=== PATIENT | female | born 1955 | race Caucasian/White ===

== ENCOUNTER 2016-11-17 10:58 | Observation (INO) | payer BC, OTHER ==
[~2016-11-17] VITALS: Ht 160 cm; Wt 74.3 kg
--- NOTE | 2016-11-17 11:38 | EMERGENCY ROOM VISIT NOTE ---
History First contact with patient: 11:26 Chief Complaint: STROKE SYMPTOMS Stated Complaint: REFERRED BY DOCTOR FOR AN MRI History of Present Illness The patient is a 60 year old female who presents to the Emergency Room with complaints of "referred by for an MRI". Patient states she was referred here by Dr. Burns. She was in his office today to get a Holter monitor applied and noted that she had left-sided facial weakness, and arm weakness therefore he sent her here for potential MRI. The patient states that this numbness started yesterday afternoon and she took a picture of her face showing the weakness and droop of the left side of her face. She states that she is also had chest pain for times in late September and early October with last being the other week and being the worst. She denies any currently. She sees Dr. Ames who ordered an EKG and noted it was abnormal as well as an echo which showed a left atrium with moderate enlargement and a left ventricle does not relax. She states that yesterday she felt her heart was going "nutty" and around that time noticed the weakness of the left side of her face and her arm. She states that Dr. Burns and did do tests in his office today and told her to go to the emergency department. She denies any history of stroke or heart problems. She denies any current chest pain or shortness of breath. Review of Systems A complete 10-point Review of Systems was discussed with the patient, with pertinent positives and negatives listed in the History of Present Illness. All remaining Review of Systems questions can be considered negative unless otherwise specified. Past Medical/Surgical History Medical Problems: (1) Multifocal atrial tachycardia (2) PAC (premature atrial contraction) Surgical Problems: (1) H/O: hysterectomy Social History Smoking Status: Never Smoker Marital Status: Housing Status: lives with significant other Occupation Status: employed Current/Historical Medications Scheduled Bupropion (Wellbutrin Sr), 200 MG PO BID Estrogens, Conjugated (Premarin), 0.3 MG PO DAILY Allergies Coded Allergies: No Known Allergies (Unverified , 11/17/16) Physical Exam Vital Signs Date Time Temp Pulse Resp B/P Pulse Ox O2 Delivery O2 Flow Rate FiO2 11/17/16 17:54 101 18 126/66 96 Room Air 11/17/16 16:05 86 20 127/77 97 Room Air 11/17/16 14:20 88 20 133/81 96 Room Air 11/17/16 13:27 94 11/17/16 13:05 83 16 129/87 100 Room Air 11/17/16 11:42 78 11/17/16 11:41 100 Room Air 11/17/16 11:04 36.6 70 18 146/96 100 Physical Exam VITAL SIGNS - Vital signs and nursing notes were reviewed. Patient is afebrile , 146/96, non-tachycardic and is saturating well on room air 100%. GENERAL -60-year-old female appearing her stated age who is in no acute distress. Communicates well with provider and answers questions appropriately. SKIN - Without rashes. HEAD - NC/AT. No unilateral facial droop or asymmetry noted. EYES - PERRL with EOMI bilaterally. Sclera anicteric. Palpebral conjunctiva pink and moist with no injection noted. EARS - No deformities of external structures noted on gross examination bilaterally. NOSE - Midline and without cyanosis. No epistaxis or purulent drainage noted. MOUTH/OROPHARYNX - Without perioral cyanosis. Buccal mucosa pink and moist and without leukoplakia. Tongue midline with equal elevation of palate bilaterally. No tonsillar hypertrophy, erythema, or exudates noted. Code dentition noted. NECK - Neck with FROM. LUNGS - Chest wall symmetric without accessory muscle use, intercostals retractions, or central cyanosis. Normal vesicular breath sounds CTA B/L. No wheezes, rales, or rhonchi appreciated. CARDIAC - RRR with S1/S2. No murmur, rubs, or gallops appreciated. EXTREMITIES - No clubbing or peripheral cyanosis. No pretibial edema present. + 5/5 strength noted in UE/LE bilaterally. No unilateral deficits noted. NEUROLOGIC - Cranial nerves II through XII grossly intact. Sensory intact to light touch throughout. PSYCH - A&Ox3 and cooperates fully with examiner. Pt is very pleasant and interacts well with examiner. Medical Decision & Procedures ER Provider Diagnostic Interpretation: HEAD CT NONCONTRAST CT DOSE: 537.48 mGy.cm HISTORY: Mental status change Stroke TECHNIQUE: Multiaxial CT images of the head were performed without the use of intravenous contrast. Comparison: 06/15/2014 Findings: The paranasal sinuses and mastoid air cells are clear. The calvarium and skull base are intact. The ventricles and sulci are within normal limits. There is no mass, hematoma, midline shift, or acute infarct. Impression: No acute intracranial abnormality. Electronically signed by: Anthony Israel M.D. 11/17/2016 12:17 PM Dictated Date/Time: 11/17/2016 12:15 PM MRI OF THE BRAIN COMBO CLINICAL HISTORY: Unilateral facial weakness. Left arm weakness. COMPARISON STUDY: CT of the brain dated 11/17/16. TECHNIQUE: MRI of the brain was performed utilizing various T1 and T2-weighted sequences in the axial, sagittal, and coronal planes. Contrast-enhanced sequences were acquired following the administration of 7.5 cc of Gadavist. FINDINGS: Brain parenchyma: The brain parenchyma is normal in appearance. There is no hemorrhage or mass effect. There is no restricted diffusion to suggest acute ischemia. No enhancing mass lesion is identified on the postcontrast images. Milligan-white matter differentiation is preserved. No extra-axial fluid collection is seen. The cerebellar tonsils are normal in configuration. Ventricles, sulci, and cisterns: Normal in configuration. Pituitary and sella: Unremarkable. Intracranial vasculature: Normal flow voids are maintained at the skull base. Orbits: The bony orbits are grossly intact. Orbital contents are normal in appearance. Sinuses and mastoids: Clear. Calvarium: Unremarkable. Cervical cord: Partially visualized cervical spinal cord is normal in morphology and signal intensity. IMPRESSION: No acute intracranial abnormality. Electronically signed by: Piyush Danielson M.D. 11/17/2016 3:53 PM Dictated Date/Time: 11/17/2016 3:50 PM Laboratory Results 11/17/16 11:30 Red Blood Count 4.16, Mean Corpuscular Volume 93.8, Mean Corpuscular Hemoglobin 31.7, Mean Corpuscular Hemoglobin Concent 33.8, Mean Platelet Volume 10.0, Neutrophils (%) (Auto) 61.2, Lymphocytes (%) (Auto) 27.6, Monocytes (%) (Auto) 8.9, Eosinophils (%) (Auto) 1.6, Basophils (%) (Auto) 0.7, Neutrophils # (Auto) 3.73, Lymphocytes # (Auto) 1.68, Monocytes # (Auto) 0.54, Eosinophils # (Auto) 0.10, Basophils # (Auto) 0.04 Test 11/17/16 11:30 11/17/16 11:50 White Blood Count 6.09 K/uL (4.8-10.8) Red Blood Count 4.16 M/uL (4.2-5.4) Hemoglobin 13.2 g/dL (12.0-16.0) Hematocrit 39.0 % (37-47) Mean Corpuscular Volume 93.8 fL (80-100) Mean Corpuscular Hemoglobin 31.7 pg (25-34) Mean Corpuscular Hemoglobin Concent 33.8 g/dl (32-36) Platelet Count 345 K/uL (130-400) Mean Platelet Volume 10.0 fL (7.4-10.4) Neutrophils (%) (Auto) 61.2 % Lymphocytes (%) (Auto) 27.6 % Monocytes (%) (Auto) 8.9 % Eosinophils (%) (Auto) 1.6 % Basophils (%) (Auto) 0.7 % Neutrophils # (Auto) 3.73 K/uL (1.4-6.5) Lymphocytes # (Auto) 1.68 K/uL (1.2-3.4) Monocytes # (Auto) 0.54 K/uL (0.11-0.59) Eosinophils # (Auto) 0.10 K/uL (0-0.5) Basophils # (Auto) 0.04 K/uL (0-0.2) RDW Standard Deviation 44.5 fL (36.4-46.3) RDW Coefficient of Variation 13.0 % (11.5-14.5) Immature Granulocyte % (Auto) 0.0 % Immature Granulocyte # (Auto) 0.00 K/uL (0.00-0.02) Prothrombin Time 10.4 SECONDS (9.0-12.0) Prothromb Time International Ratio 1.0 (0.9-1.1) Activated Partial Thromboplast Time 26.4 SECONDS (21.0-31.0) Partial Thromboplastin Ratio 1.0 Bedside Glucose 80 mg/dl (70-90) Medications Administered Medications (Trade) Dose Ordered Sig/Roxann Route Start Time Stop Time Status Last Admin Dose Admin Sodium Chloride (Nss 1000ml) 1,000 ml @ 50 mls/hr Q20H IV 11/17/16 11:38 12/17/16 11:37 11/17/16 11:53 50 MLS/HR Aspirin (Aspirin Chew) 324 mg NOW STAT PO 11/17/16 18:39 11/17/16 18:44 DC 11/17/16 19:24 324 MG Medical Decision Patient was seen and evaluated as above. After obtaining a thorough history and physical examination IV access is obtained and the above workup was obtained. NIH stroke scale 0. The patient did not have any neurologic deficits upon my exam or facial drooping or left-sided weakness. She was evaluated for potential stroke. CT scan of the head was negative. CBC reveals a leukocytosis but slight anemia. Coagulation studies within normal limits. CT and PE reveal slight elevation of BUN, negative troponin. Patient's EKG revealed normal sinus rhythm, rate of 73 bpm and when compared to EKG of 2013 reveals that the PVCs and PACs are no longer present. EKG was then repeated as the patient fell she was expecting palpitations. The repeat EKG revealed PVCs and the incomplete right bundle-branch block was no longer present. Troponin was negative therefore I do not suspect any cardiac abnormality at this time. The case was discussed with my attending and it was decided to obtain an MRI of the brain with and without contrast. Results as above. With normal limits. I then elected discussed the case with the on-call neurologist 6:[address] Ibarra and the case was thoroughly discussed. She recommended that the patient be admitted as the case does sound concerning she recommended obtaining a CT of the head, neck as well as echo. She also recommended obtaining a hemoglobin A1c and to look into potential risk factors. The case was then discussed with the admission team and the patient will be admitted for further evaluation and management. Please refer to further hospital documentation regarding the patient's stay. I do believe the patient will benefit from inpatient management. She was given 324 mg of aspirin after discussing the case with my attending. In the evaluation treatment this patient following differential diagnoses were entertained: TIA, CVA, neurologic event, among others. Impression Primary Impression: Facial droop Additional Impressions: Left arm weakness PVC (premature ventricular contraction) Heart palpitations Departure Information Dispostion Admitted as an inpatient Condition FAIR Referrals Brady Ames M.D. (PCP) Patient Instructions My [facility] Problem Qualifiers
[2016-11-17] MEDS ORDERED: ESTR0.3T PO (11:39)
[2016-11-17] MEDS ORDERED: BUPR200T2 PO (11:39)
[2016-11-17 11:52] LABS: BASO % 0.7 %; BASO ABS # 0.04 K/uL (0-0.2); COMPLETE YES; EOS % 1.6 %; LYMPH % 27.6 %; LYMPH ABS # 1.68 K/uL (1.2-3.4); MEAN CELL VOLUME 93.8 fL (80-100); MEAN CORPUSCULAR HEMOGLOBIN 31.7 pg (25-34); MEAN CORPUSCULAR HGB CONC 33.8 g/dl (32-36); MONO % 8.9 %; NEUT % 61.2 %; PLATELET COUNT 345 K/uL (130-400); RED BLOOD COUNT 4.16 M/uL (4.2-5.4); WHITE BLOOD COUNT 6.09 K/uL (4.8-10.8)
[2016-11-17] MEDS: SODIUM CHLORIDE 0.9% 1000ML 1,000 ML IV SCH (11:53)
[2016-11-17 11:59] LABS: PROTHROMBIN TIME (PATIENT) 10.4 SECONDS (9.0-12.0)
--- NOTE | 2016-11-17 12:18 | DIAGNOSTIC IMAGING REPORT ---
HEAD CT NONCONTRAST CT DOSE: 537.48 mGy.cm HISTORY: Mental status change Stroke TECHNIQUE: Multiaxial CT images of the head were performed without the use of intravenous contrast. Comparison: 06/15/2014 Findings: The paranasal sinuses and mastoid air cells are clear. The calvarium and skull base are intact. The ventricles and sulci are within normal limits. There is no mass, hematoma, midline shift, or acute infarct. Impression: No acute intracranial abnormality. Electronically signed by: Anthony Israel M.D. 11/17/2016 12:17 PM Dictated Date/Time: 11/17/2016 12:15 PM
[2016-11-17 12:25] LABS: BLOOD UREA NITROGEN 19 mg/dl (7-18); BUN/CREATININE RATIO 22.3 (10-20); CALCIUM 9.1 mg/dl (8.5-10.1); CARBON DIOXIDE 25 mmol/L (21-32); CHLORIDE 106 mmol/L (98-107); CREATININE 0.86 mg/dl (0.60-1.20); GLUCOSE 83 mg/dl (70-99); SODIUM 140 mmol/L (136-145)
--- NOTE | 2016-11-17 15:54 | DIAGNOSTIC IMAGING REPORT ---
MRI OF THE BRAIN COMBO CLINICAL HISTORY: Unilateral facial weakness. Left arm weakness. COMPARISON STUDY: CT of the brain dated 11/17/16. TECHNIQUE: MRI of the brain was performed utilizing various T1 and T2-weighted sequences in the axial, sagittal, and coronal planes. Contrast-enhanced sequences were acquired following the administration of 7.5 cc of Gadavist. FINDINGS: Brain parenchyma: The brain parenchyma is normal in appearance. There is no hemorrhage or mass effect. There is no restricted diffusion to suggest acute ischemia. No enhancing mass lesion is identified on the postcontrast images. Milligan-white matter differentiation is preserved. No extra-axial fluid collection is seen. The cerebellar tonsils are normal in configuration. Ventricles, sulci, and cisterns: Normal in configuration. Pituitary and sella: Unremarkable. Intracranial vasculature: Normal flow voids are maintained at the skull base. Orbits: The bony orbits are grossly intact. Orbital contents are normal in appearance. Sinuses and mastoids: Clear. Calvarium: Unremarkable. Cervical cord: Partially visualized cervical spinal cord is normal in morphology and signal intensity. IMPRESSION: No acute intracranial abnormality. Electronically signed by: Piyush Danielson M.D. 11/17/2016 3:53 PM Dictated Date/Time: 11/17/2016 3:50 PM
[2016-11-17] MEDS ORDERED: ASPIRIN 81 MG CHEW PO STA (18:39)
[2016-11-17] MEDS ORDERED: ONDANSETRON INJ 2 MG/ML 2 ML VIAL IV PRN (19:15)
[2016-11-17] MEDS ORDERED: ALUMINUM/MAGNESIUM/SIMETH (MAALOX MAX) 30 ML UDC PO PRN (19:15)
[2016-11-17] MEDS ORDERED: PROMETHAZINE HCL INJ 12.5 MG in SODIUM CHLORIDE 0.9% 50ML 50 ML IV PRN (19:15)
[2016-11-17] MEDS ORDERED: LORAZEPAM 2 MG/ML 1 ML VIAL IV PRN (19:15)
[2016-11-17] MEDS ORDERED: DiphenhydrAMINE HCL 50 MG/ML VIAL IV PRN (19:15)
[2016-11-17] MEDS ORDERED: ZOLPIDEM TARTRATE 5 MG TAB PO PRN ×2 (19:15)
[2016-11-17] MEDS ORDERED: ACETAMINOPHEN 325 MG TAB PO PRN ×2 (19:15)
[2016-11-17] MEDS ORDERED: MAGNESIUM HYDROXIDE SUSP 30 ML UDC PO PRN (19:15)
[2016-11-17 20:21] LABS: ALT/SGPT 18 U/L (12-78); BLOOD UREA NITROGEN 14 mg/dl (7-18); BUN/CREATININE RATIO 18.2 (10-20); CALCIUM 8.9 mg/dl (8.5-10.1); CARBON DIOXIDE 24 mmol/L (21-32); CHLORIDE 108 mmol/L (98-107); CREATININE 0.77 mg/dl (0.60-1.20); GLUCOSE 79 mg/dl (70-99); MAGNESIUM 2.2 mg/dl (1.8-2.4); POTASSIUM 3.7 mmol/L (3.5-5.1); SODIUM 142 mmol/L (136-145)
--- NOTE | 2016-11-17 20:22 | History and Physical ---
History & Physical Date & Time of Service: Nov 17, 2016 at 20:19 Chief Complaint: Referred By Doctor For An Mri Primary Care Physician: Brady Ames M.D. History of Present Illness Source: patient The patient is a 60-year-old female who is referred by her maintenance fitter Dr. Lucero to the emergency department after she reported to him that she had left- sided facial weakness and arm weakness that had begun the day before , and requested that she get an MRI the brain. She reports an episode of chest pain that occurred in September and then in October, with the worst being one week ago. She is referred to cardiology by Dr. Ames, who had ordered an EKG which was noted to be abnormal and echo which showed moderate left atrial enlargement and left ventricular diastolic dysfunction. Symptoms she developed yesterday included jitteriness in her chest, that occurred at the same time as the weakness of her left side of her face and arm. Past Medical/Surgical History Surgical Problems: (1) H/O: hysterectomy Status: Resolved Social History Smoking Status: Never Smoker Smokeless Tobacco Use: No Alcohol Use: none Drug Use: none Marital Status: Housing status: lives with family Occupational Status: employed Multi-Drug Resistant Organisms History of MDRO: No Allergies Coded Allergies: No Known Allergies (Unverified , 11/17/16) Home Medications Scheduled Bupropion (Wellbutrin Sr), 200 MG PO BID Estrogens, Conjugated (Premarin), 0.3 MG PO DAILY Review of Systems The patient denies lower extremity swelling, vision change, hearing change, sore throat, fevers, chills, sweats, weight change, fatigue, nausea, vomiting, abdominal pain, pelvic pain, blood in urine or stool, dysuria, urinary frequency or urgency, lightheadedness, dizziness, headache, memory loss, rash, abnormal bruising or bleeding, imbalance, focal weakness, arthralgias or myalgias, back or neck pain, night sweats, or allergy symptoms. The review of systems is otherwise negative other than for that already noted above, and at least 10 systems have been reviewed. Physical Exam Vital Signs Date Time Temp Pulse Resp B/P Pulse Ox O2 Delivery O2 Flow Rate FiO2 11/17/16 19:24 88 24 139/71 96 Room Air 11/17/16 17:54 101 18 126/66 96 Room Air 11/17/16 16:05 86 20 127/77 97 Room Air 11/17/16 14:20 88 20 133/81 96 Room Air 11/17/16 13:27 94 11/17/16 13:05 83 16 129/87 100 Room Air 11/17/16 11:42 78 11/17/16 11:41 100 Room Air 11/17/16 11:04 36.6 70 18 146/96 100 The patient is awake, well-developed and adequately nourished, alert and oriented 3, normocephalic and atraumatic, lying in bed and in no acute distress. HEENT--PERRL, EOMI, mucous membranes and oropharynx dry. Neck--supple, no JVD or bruits, thyroid normal, trachea midline, no adenopathy. Heart--normal S1 and S2, frequent PACs, no murmurs, rubs or gallops. Lungs--a few crackles at the bases bilaterally, no respiratory distress, no accessory muscle use. Abdomen--normal bowel sounds and soft, nontender and nondistended, no hernias or masses, no organomegaly. Extremities--no cyanosis, clubbing or edema. There are good distal pulses b/l. Dermatologic--normal skin turgor, normal color, warm and dry, no abnormal lymph nodes, no rash. Neurologic--cranial nerves II through XII grossly intact, motor and sensory examination normal. Rheumatologic--normal range of motion, nontender, muscles and joints. Psychiatric--normal affect. Diagnostics Laboratory Results Results Past 24 Hours Test 11/17/16 11:30 11/17/16 11:50 11/17/16 19:08 11/17/16 19:12 Range/Units White Blood Count 6.09 4.8-10.8 K/uL Red Blood Count 4.16 4.2-5.4 M/uL Hemoglobin 13.2 12.0-16.0 g/dL Hematocrit 39.0 37-47 % Mean Corpuscular Volume 93.8 80-100 fL Mean Corpuscular Hemoglobin 31.7 25-34 pg Mean Corpuscular Hemoglobin Concent 33.8 32-36 g/dl Platelet Count 345 130-400 K/uL Mean Platelet Volume 10.0 7.4-10.4 fL Neutrophils (%) (Auto) 61.2 % Lymphocytes (%) (Auto) 27.6 % Monocytes (%) (Auto) 8.9 % Eosinophils (%) (Auto) 1.6 % Basophils (%) (Auto) 0.7 % Neutrophils # (Auto) 3.73 1.4-6.5 K/uL Lymphocytes # (Auto) 1.68 1.2-3.4 K/uL Monocytes # (Auto) 0.54 0.11-0.59 K/uL Eosinophils # (Auto) 0.10 0-0.5 K/uL Basophils # (Auto) 0.04 0-0.2 K/uL RDW Standard Deviation 44.5 36.4-46.3 fL RDW Coefficient of Variation 13.0 11.5-14.5 % Immature Granulocyte % (Auto) 0.0 % Immature Granulocyte # (Auto) 0.00 0.00-0.02 K/uL Prothrombin Time 10.4 9.0-12.0 SECONDS Prothromb Time International Ratio 1.0 0.9-1.1 Activated Partial Thromboplast Time 26.4 21.0-31.0 SECONDS Partial Thromboplastin Ratio 1.0 Sodium Level 140 136-145 mmol/L Potassium Level 3.5-5.1 mmol/L Chloride Level 106 98-107 mmol/L Carbon Dioxide Level 25 21-32 mmol/L Anion Gap 9.0 3-11 mmol/L Blood Urea Nitrogen 19 7-18 mg/dl Creatinine 0.86 0.60-1.20 mg/dl Est Creatinine Clear Calc Drug Dose 68.3 ml/min Estimated GFR () 85.7 Estimated GFR (Non- 73.9 BUN/Creatinine Ratio 22.3 10-20 Random Glucose 83 70-99 mg/dl Calcium Level 9.1 8.5-10.1 mg/dl Total Creatine Kinase 26-192 U/L Creatine Kinase MB < 0.5 0.5-3.6 ng/ml Creatine Kinase MB Ratio 0-3.0 Troponin I < 0.015 0-0.045 ng/ml Bedside Glucose 80 70-90 mg/dl Test 11/17/16 19:45 Range/Units Diagnostic Radiology Patient Name: ORTEGA ROSAS Unit Number: [id number] Dictated: 11/17/165 Transcribed: 11/17/16 1215 MS Printed Date/Time: [~ rep prt dt]/[~ rep prt tm] [~ rep ct labl] - [~ rep ct ivnm] [facility] Radiology Department [place] [address] Dictated: 11/17/16 1215 Transcribed: 11/17/16 1215 MS Printed Date/Time: [~ rep prt dt]/[~ rep prt tm] [~ rep ct labl] - [~ rep ct ivnm] HEAD CT NONCONTRAST CT DOSE: 537.48 mGy.cm HISTORY: Mental status change Stroke TECHNIQUE: Multiaxial CT images of the head were performed without the use of intravenous contrast. Comparison: 06/15/2014 Findings: The paranasal sinuses and mastoid air cells are clear. The calvarium and skull base are intact. The ventricles and sulci are within normal limits. There is no mass, hematoma, midline shift, or acute infarct. Impression: No acute intracranial abnormality. Electronically signed by: Anthony Israel M.D. 11/17/2016 12:17 PM Dictated Date/Time: 11/17/2016 12:15 PM The status of this report is Signed. Draft = Not yet reviewed or approved by Radiologist. Signed = Reviewed and approved by Radiologist. <AttendingPhy></AttendingPhy> <FamilyPhy>Brady Ames M.D.</FamilyPhy> < PrimaryPhy>Brady Ames M.D.</PrimaryPhy> <UnitNumber>[id number]</ UnitNumber> <VisitNumber>[id number]</VisitNumber> <PatientName>ORTEGA ROSAS</PatientName> <DateOfBirth>1955</DateOfBirth> <Location>C.EDB</Location > <ServiceDate>11/17/16</ServiceDate> <MNE>ESINDI</MNE> <OrderingPhy>Matt Mercado PA-C</OrderingPhy> <OrderingPhyMNE>f rep ord dr billy</OrderingPhyMNE> < DictatingPhyMNE>f rep dict dr billy</DictatingPhyMNE> <CCListMNE>f rep ct mne</ CCListMNE> <AdmittingPhyMNE>f pt admit dr billy</AdmittingPhyMNE> <AttendingPhyMNE >f pt attend dr billy</AttendingPhyMNE> <ConsultingPhyMNE>f pt consult dr billy</ConsultingPhyMNE> <FamilyPhyMNE>f pt fam dr billy</FamilyPhyMNE> <OtherPhyMNE>f pt other dr billy</OtherPhyMNE> < PrimaryPhyMNE>f pt prim care dr billy</PrimaryPhyMNE> <ReferringPhyMNE>f pt referring dr billy</ReferringPhyMNE> Patient Name: ORTEGA ROSAS Unit Number: [id number] Dictated: 11/17/161549 Transcribed: 11/17/161549 EV Printed Date/Time: [~ rep prt dt]/[~ rep prt tm] [~ rep ct labl] - [~ rep ct ivnm] [facility] [place] [place] [address] Dictated: 11/17/161549 Transcribed: 11/17/161549 EV Printed Date/Time: [~ rep prt dt]/[~ rep prt tm] [~ rep ct labl] - [~ rep ct ivnm] MRI OF THE BRAIN COMBO CLINICAL HISTORY: Unilateral facial weakness. Left arm weakness. COMPARISON STUDY: CT of the brain dated 11/17/16. TECHNIQUE: MRI of the brain was performed utilizing various T1 and T2-weighted sequences in the axial, sagittal, and coronal planes. Contrast-enhanced sequences were acquired following the administration of 7.5 cc of Gadavist. FINDINGS: Brain parenchyma: The brain parenchyma is normal in appearance. There is no hemorrhage or mass effect. There is no restricted diffusion to suggest acute ischemia. No enhancing mass lesion is identified on the postcontrast images. Milligan-white matter differentiation is preserved. No extra-axial fluid collection is seen. The cerebellar tonsils are normal in configuration. Ventricles, sulci, and cisterns: Normal in configuration. Pituitary and sella: Unremarkable. Intracranial vasculature: Normal flow voids are maintained at the skull base. Orbits: The bony orbits are grossly intact. Orbital contents are normal in appearance. Sinuses and mastoids: Clear. Calvarium: Unremarkable. Cervical cord: Partially visualized cervical spinal cord is normal in morphology and signal intensity. IMPRESSION: No acute intracranial abnormality. Electronically signed by: Piyush Danielson M.D. 11/17/2016 3:53 PM Dictated Date/Time: 11/17/2016 3:50 PM The status of this report is Signed. Draft = Not yet reviewed or approved by Radiologist. Signed = Reviewed and approved by Radiologist. <AttendingPhy></AttendingPhy> <FamilyPhy>Brady Ames M.D.</FamilyPhy> < PrimaryPhy>Brady Ames M.D.</PrimaryPhy> <UnitNumber>[id number]</ UnitNumber> <VisitNumber>[id number]</VisitNumber> <PatientName>RALPHORTEGA</PatientName> <DateOfBirth>1955</DateOfBirth> <Location>C.EDB</Location > <ServiceDate>11/17/16</ServiceDate> <MNE>ESINDI</MNE> <OrderingPhy>Matt Mercado PA-C</OrderingPhy> <OrderingPhyMNE>f rep ord dr billy</OrderingPhyMNE> < DictatingPhyMNE>f rep dict dr billy</DictatingPhyMNE> <CCListMNE>f rep ct mne</ CCListMNE> <AdmittingPhyMNE>f pt admit dr billy</AdmittingPhyMNE> <AttendingPhyMNE >f pt attend dr billy</AttendingPhyMNE> <ConsultingPhyMNE>f pt consult dr billy</ConsultingPhyMNE> <FamilyPhyMNE>f pt fam dr billy</FamilyPhyMNE> <OtherPhyMNE>f pt other dr billy</OtherPhyMNE> < PrimaryPhyMNE>f pt prim care dr billy</PrimaryPhyMNE> <ReferringPhyMNE>f pt referring dr billy</ReferringPhyMNE> EKG EKG shows normal sinus rhythm at 88 bpm, with PACs, in no acute ST-T changes. Rhythm on monitor in the ED shows rate-controlled MAT. Impression Assessment and Plan Multifocal atrial tachycardia on rhythm monitor/EKG with PACs--the patient be admitted to the telemetry unit, for serial cardiac enzymes, cardiac rhythm monitoring, and a 2-D echocardiogram with Dopplers. Transient neurologic symptoms primarily left-sided facial weakness--CT of the head is negative, an MRI of the brain combo is negative. We will cannot order an MRA of the head cinches already had gadolinium, we'll therefore order a CTA of the head and neck. Depression--continue bupropion SR 200 mg by mouth twice a day. Level of Care Telemetry Advanced Directives Existing Advance Directive: No Existing Living Will: No Existing Power of Equipment Planner: No Resuscitation Status FULL RESUSCITATION VTE Prophylaxis VTE Risk Assessment Done? Y/N: Yes Risk Level: Moderate Given or contraindicated: SCD's Social Service Consult None Apply
[2016-11-17 20:30] LABS: ALB/GLOB RATIO 1.2 (0.9-2); ALKALINE PHOSPHATASE 74 U/L (45-117); AST/SGOT 13 U/L (15-37)
[2016-11-17 20:55] VITALS: BP 131/77; PULSE 73; TEMP 36.7; O2SAT 97; Ht 160 cm; Wt 74.3 kg
[2016-11-17] MEDS ORDERED: LORAZEPAM INJ 0.5 MG in SYRINGE 0.75 ML IV PRN (21:00)
[2016-11-17] MEDS ORDERED: OPTIRAY 320 IV PRN (21:15)
[2016-11-17] MEDS ORDERED: IV FLUIDS COMPLETED PRN (21:30)
[2016-11-17] MEDS: NSS + 20MEQ KCL 1000ML 1,000 ML IV SCH (22:30)
[2016-11-17 23:02] VITALS: BP 110/68; PULSE 84; TEMP 36.7; O2SAT 97
[2016-11-17 23:46] LABS: BENZODIAZEPINE, URINE NEG (NEG); COCAINE,URINE NEG (NEG); PHENCYCLIDINE, URINE NEG (NEG)
[2016-11-17 23:59] VITALS: O2SAT 97
[2016-11-18 03:40] LABS: BASO % 0.9 %; BASO ABS # 0.05 K/uL (0-0.2); COMPLETE YES; EOS % 2.2 %; HEMATOCRIT 32.1 % (37-47); LYMPH % 38.1 %; MEAN CORPUSCULAR HEMOGLOBIN 32.2 pg (25-34); MEAN CORPUSCULAR HGB CONC 34.6 g/dl (32-36); MEAN PLATELET VOLUME 9.9 fL (7.4-10.4); MONO % 9.6 %; NEUT % 49.2 %; PLATELET COUNT 293 K/uL (130-400); RED BLOOD COUNT 3.45 M/uL (4.2-5.4); WHITE BLOOD COUNT 5.51 K/uL (4.8-10.8)
[2016-11-18 04:00] VITALS: BP 113/72; PULSE 70; TEMP 36.8; O2SAT 96; O2SAT 97
[2016-11-18 04:12] LABS: BLOOD UREA NITROGEN 16 mg/dl (7-18); BUN/CREATININE RATIO 25.2 (10-20); CARBON DIOXIDE 22 mmol/L (21-32); CHLORIDE 116 mmol/L (98-107); CREATININE 0.63 mg/dl (0.60-1.20); GLUCOSE 72 mg/dl (70-99); SODIUM 145 mmol/L (136-145)
[2016-11-18 04:13] LABS: CALCIUM 7.3 mg/dl (8.5-10.1)
[2016-11-18 05:32] LABS: MAGNESIUM 2.1 mg/dl (1.8-2.4)
--- NOTE | 2016-11-18 07:33 | DIAGNOSTIC IMAGING REPORT ---
CT NECK ANGIO WITH CONTRAST CLINICAL HISTORY: Left-sided facial weakness. Possible stroke. COMPARISON STUDY: No previous studies for comparison. TECHNIQUE: CT angiography was performed from the aortic arch to the skull base. MIP imaging was performed. The patient was scanned in a dynamic helical fashion during intravenous administration of 92 cc of Optiray 320. CT DOSE: Technique: CT angiogram of the carotid and vertebral arteries was obtained using intravenous contrast and 3-D reconstruction. NASCET criteria was utilized. Findings: The right carotid revealed no evidence of aneurysm and no evidence of dissection. There is no evidence of hemodynamic significant stenosis. The left carotid revealed no evidence of hemodynamic significant stenosis. There is no evidence of aneurysm. There is no evidence of dissection. There is no evidence of hemodynamically significant vertebral stenosis. There is no evidence of vertebral dissection. IMPRESSION: No evidence of hemodynamically significant carotid or vertebral artery stenosis. No evidence of dissection. Electronically signed by: Donovan Nazario M.D. 11/18/2016 7:32 AM Dictated Date/Time: 11/18/2016 7:30 AM
--- NOTE | 2016-11-18 07:35 | DIAGNOSTIC IMAGING REPORT ---
CT ANGIOGRAM OF THE BRAIN CLINICAL HISTORY: Left-sided facial weakness. COMPARISON STUDY: CT of MRI of the brain dated to. TECHNIQUE: Following the IV administration of 92 cc of Optiray 320, CT angiogram of the brain was performed from the skull base to the vertex. Images are reviewed in the axial, sagittal, and coronal planes. 3-D MIPS images are created and assessed. IV contrast was administered without complication. FINDINGS: Brain parenchyma: The brain parenchyma is normal in appearance. There is no hemorrhage, mass effect, or evidence of acute territorial ischemia by CT criteria. There is no evidence of enhancing mass lesion on these angiographic phase images. No extra-axial fluid collection is seen. Milligan-white matter differentiation is preserved. Ventricles, sulci, and cisterns: Normal in configuration. CT angiogram of the brain: There is origin of the right posterior cerebral artery. The right A1 segment is diminutive. The internal carotid arteries are widely patent, as are the anterior and middle cerebral arteries. The vertebrobasilar system and posterior cerebral arteries are widely patent. The left vertebral artery is dominant. There is no aneurysm, high-grade stenosis, or focal vessel cutoff identified throughout the intracranial circulation. Dural sinuses: Clear as visualized. Orbits: The bony orbits are intact. The orbital contents are normal as visualized. Sinuses and mastoids: The visualized paranasal sinuses are clear. The mastoid air cells are well pneumatized. Calvarium: Unremarkable. IMPRESSION: 1. No acute intracranial abnormality. 2. Unremarkable CT angiogram of the brain. Electronically signed by: Piyush Danielson M.D. 11/18/2016 7:34 AM Dictated Date/Time: 11/18/2016 7:30 AM
[2016-11-18] MEDS: SODIUM CHLORIDE 0.9% 1000ML 1,000 ML IV SCH (07:38)
--- NOTE | 2016-11-18 07:52 | Hospitalist Progress Note ---
Hospitalist Progress Note Date of Service Nov 18, 2016. Subjective Pt evaluation today including: conversation w/ patient, physical exam, chart review, lab review, review of studies, review of inpatient medication list Voiding: no voiding problems, no incontinence Patient states she is feeling well. Symptoms POA to ED have almost completely resolved- symptoms were +facial droop, left sided weakness, palpations, chest discomfort. She is eating and drinking OK. Patient denies any fever, chills, sweats, lightheadedness, dizziness, vision changes, CP, edema, SOB, wheezing, cough, abdominal pain, nausea, vomiting, diarrhea, urinary symptoms, melena, muscle/joint pain, anxiety/depression, active bleeding, or new skin discoloration/changes. Medications Current Inpatient Medications Medications (Trade) Dose Ordered Sig/Roxann Route Start Time Stop Time Status Last Admin Dose Admin Potassium Chloride/Sodium Chloride (Nss + 20meq KCl 1000ml) 1,000 ml @ 100 mls/hr Q10H IV 11/17/16 21:15 12/17/16 21:14 11/18/16 08:08 100 MLS/HR Acetaminophen (Tylenol Tab) 650 mg Q4H PRN PO 11/17/16 19:15 12/17/16 19:14 Zolpidem Tartrate (Ambien Tab) 5 mg HSZ PRN PO 11/17/16 19:15 12/17/16 19:14 Lorazepam (Ativan Inj) 0.5 mg Q4H PRN IV 11/17/16 19:15 12/17/16 19:14 Magnesium Hydroxide (Milk Of Magnesia Susp) 30 ml Q6H PRN PO 11/17/16 19:15 12/17/16 19:14 Diphenhydramine HCl (Benadryl Inj) 25 mg Q4H PRN IV 11/17/16 19:15 12/17/16 19:14 Al Hydrox/Mg Hydrox/ Simethicone 15 ml 15 ml Q4H PRN PO 11/17/16 19:15 12/17/16 19:14 Promethazine HCl/ Sodium Chloride (Phenergan Inj/ Nss 50ml) 50.5 ml @ 202 mls/hr Q4H PRN IV 11/17/16 19:15 12/17/16 19:14 Ondansetron HCl 4 mg 4 mg Q6H PRN IV 11/17/16 19:15 12/17/16 19:14 Lorazepam/Syringe (Ativan Inj/ Syringe) 1 ml @ 1 mls/min Q4H PRN IV 11/17/16 21:00 12/17/16 20:59 Ioversol (Optiray 320) 100 ml UD PRN IV 11/17/16 21:15 11/21/16 21:14 Miscellaneous (Iv Fluids Completed) 1 ea PRN PRN N/A 11/17/16 21:30 11/17/17 21:29 Aspirin (Ecotrin Tab) 81 mg QAM PO 11/18/16 09:00 12/18/16 08:59 11/18/16 10:06 81 MG Objective Vital Signs Date Time Temp Pulse Resp B/P Pulse Ox O2 Delivery O2 Flow Rate FiO2 11/18/16 04:00 36.8 70 12 113/72 96 Room Air 11/18/16 04:00 97 Room Air 11/17/16 23:59 97 Room Air 11/17/16 23:02 36.7 84 18 110/68 97 Room Air 11/17/16 20:55 36.7 73 18 131/77 97 Room Air 11/17/16 19:24 88 24 139/71 96 Room Air 11/17/16 17:54 101 18 126/66 96 Room Air 11/17/16 16:05 86 20 127/77 97 Room Air 11/17/16 14:20 88 20 133/81 96 Room Air 11/17/16 13:27 94 11/17/16 13:05 83 16 129/87 100 Room Air 11/17/16 11:42 78 11/17/16 11:41 100 Room Air 11/17/16 11:04 36.6 70 18 146/96 100 Physical Exam General Appearance: WD/WN, no apparent distress Eyes: normal inspection, PERRL ENT: hearing grossly normal Neck: supple Respiratory/Chest: lungs clear, no respiratory distress, no accessory muscle use Cardiovascular: regular rate, rhythm, no edema Abdomen: normal bowel sounds, non tender, soft Extremities: no pedal edema, no calf tenderness Neurologic/Psychiatric: alert, normal mood/affect, oriented x 3, + motor weakness (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 ) Skin: normal color, warm/dry, no rash Laboratory Results Last 24 Hours Test 11/17/16 11:30 11/17/16 11:50 11/17/16 19:12 11/17/16 19:45 White Blood Count 6.09 K/uL Red Blood Count 4.16 M/uL Hemoglobin 13.2 g/dL Hematocrit 39.0 % Mean Corpuscular Volume 93.8 fL Mean Corpuscular Hemoglobin 31.7 pg Mean Corpuscular Hemoglobin Concent 33.8 g/dl Platelet Count 345 K/uL Mean Platelet Volume 10.0 fL Neutrophils (%) (Auto) 61.2 % Lymphocytes (%) (Auto) 27.6 % Monocytes (%) (Auto) 8.9 % Eosinophils (%) (Auto) 1.6 % Basophils (%) (Auto) 0.7 % Neutrophils # (Auto) 3.73 K/uL Lymphocytes # (Auto) 1.68 K/uL Monocytes # (Auto) 0.54 K/uL Eosinophils # (Auto) 0.10 K/uL Basophils # (Auto) 0.04 K/uL RDW Standard Deviation 44.5 fL RDW Coefficient of Variation 13.0 % Immature Granulocyte % (Auto) 0.0 % Immature Granulocyte # (Auto) 0.00 K/uL Prothrombin Time 10.4 SECONDS Prothromb Time International Ratio 1.0 Activated Partial Thromboplast Time 26.4 SECONDS Partial Thromboplastin Ratio 1.0 Sodium Level 140 mmol/L 142 mmol/L Potassium Level mmol/L 3.7 mmol/L Chloride Level 106 mmol/L 108 mmol/L Carbon Dioxide Level 25 mmol/L 24 mmol/L Anion Gap 9.0 mmol/L 10.0 mmol/L Blood Urea Nitrogen 19 mg/dl 14 mg/dl Creatinine 0.86 mg/dl 0.77 mg/dl Est Creatinine Clear Calc Drug Dose 68.3 ml/min 76.3 ml/min Estimated GFR () 85.7 98.0 Estimated GFR (Non- 73.9 84.5 BUN/Creatinine Ratio 22.3 18.2 Random Glucose 83 mg/dl 79 mg/dl Calcium Level 9.1 mg/dl 8.9 mg/dl Total Creatine Kinase U/L 59 U/L Creatine Kinase MB < 0.5 ng/ml < 0.5 ng/ml Creatine Kinase MB Ratio Troponin I < 0.015 ng/ml < 0.015 ng/ml Bedside Glucose 80 mg/dl Magnesium Level 2.2 mg/dl Total Bilirubin 0.3 mg/dl Aspartate Amino Transf (AST/SGOT) 13 U/L Alanine Aminotransferase (ALT/SGPT) 18 U/L Alkaline Phosphatase 74 U/L Total Protein 7.1 gm/dl Albumin 3.9 gm/dl Globulin 3.2 gm/dl Albumin/Globulin Ratio 1.2 Thyroid Stimulating Hormone (TSH) 2.910 uIu/ml Free Thyroxine 1.11 ng/dl Free Triiodothyronine 3.53 pg/ml Hepatitis C Antibody Screen NEG Test 11/17/16 22:42 11/18/16 03:14 11/18/16 04:55 Urine Opiates Screen NEG Urine Methadone, Qualitative NEG Urine Barbiturates NEG Urine Phencyclidine (PCP) Level NEG Ur Amphetamine/Methamphetamine NEG MDMA (Ecstasy) Screen POS Urine Benzodiazepines Screen NEG Urine Cocaine Metabolite NEG Urine Marijuana (THC) NEG White Blood Count 5.51 K/uL Red Blood Count 3.45 M/uL Hemoglobin 11.1 g/dL Hematocrit 32.1 % Mean Corpuscular Volume 93.0 fL Mean Corpuscular Hemoglobin 32.2 pg Mean Corpuscular Hemoglobin Concent 34.6 g/dl Platelet Count 293 K/uL Mean Platelet Volume 9.9 fL Neutrophils (%) (Auto) 49.2 % Lymphocytes (%) (Auto) 38.1 % Monocytes (%) (Auto) 9.6 % Eosinophils (%) (Auto) 2.2 % Basophils (%) (Auto) 0.9 % Neutrophils # (Auto) 2.71 K/uL Lymphocytes # (Auto) 2.10 K/uL Monocytes # (Auto) 0.53 K/uL Eosinophils # (Auto) 0.12 K/uL Basophils # (Auto) 0.05 K/uL RDW Standard Deviation 44.6 fL RDW Coefficient of Variation 13.0 % Immature Granulocyte % (Auto) 0.0 % Immature Granulocyte # (Auto) 0.00 K/uL Sodium Level 145 mmol/L Potassium Level mmol/L 4.0 mmol/L Chloride Level 116 mmol/L Carbon Dioxide Level 22 mmol/L Anion Gap 7.0 mmol/L Blood Urea Nitrogen 16 mg/dl Creatinine 0.63 mg/dl Est Creatinine Clear Calc Drug Dose 91.1 ml/min Estimated GFR () 113.8 Estimated GFR (Non- 98.2 BUN/Creatinine Ratio 25.2 Random Glucose 72 mg/dl Calcium Level 7.3 mg/dl Magnesium Level mg/dl 2.1 mg/dl Total Creatine Kinase U/L 50 U/L Creatine Kinase MB 0.6 ng/ml Creatine Kinase MB Ratio Troponin I < 0.015 ng/ml Assessment and Plan The patient is a 60-year-old female who is referred by her marketing team lead Dr. Lucero to the emergency department after she reported to him that she had left- sided facial weakness and arm weakness that had begun the day before , and requested that she get an MRI the brain. She reports an episode of chest pain that occurred in September and then in October, with the worst being one week ago. She is referred to cardiology by Dr. Ames, who had ordered an EKG which was noted to be abnormal and echo which showed moderate left atrial enlargement and left ventricular diastolic dysfunction. Symptoms she developed on 11/16, included jitteriness in her chest, that occurred at the same time as the weakness of her left side of her face and arm. Multifocal atrial tachycardia on rhythm monitor/EKG with PACs: - Admit to the telemetry unit for cardiac rhythm monitoring- cardiac monitoring reviewed, no acute events, PVCs noted. (11/18) - Trend cardiac enzymes x3- negative - ECHO pending - TSH checked, 2.910 - Follow CBC and BMP Transient neurologic symptoms primarily left-sided facial weakness: - CT of the head- No acute intracranial abnormality. - MRI of the brain- No acute intracranial abnormality. - CTA of the head and neck- No evidence of hemodynamically significant carotid or vertebral artery stenosis. No evidence of dissection. No acute intracranial abnormality. Unremarkable CT angiogram of the brain. - Chest/thorax CTA- There is no evidence of pulmonary embolus in the main, lobar , or segmental pulmonary arteries. The lungs are clear. - Start ASA 81 mg PO daily - Check lipid panel and ha1c - Consulted neurology, appreciate recommendations Depression: - Continue Bupropion SR 200 mg PO BID DVT prophylaxis: - Early ambulation GI Prophylaxis: - Maalox PRN - IV Zofran PRN - Colace and/or Milk of Mag PRN Code Status: - LEVEL I, FULL Dispo: - Discharge to home once medically stable.
[2016-11-18 08:00] VITALS: BP 105/60; PULSE 76; TEMP 36.6; O2SAT 96; O2SAT 97
--- NOTE | 2016-11-18 08:04 | DIAGNOSTIC IMAGING REPORT ---
CT ANGIOGRAM OF THE CHEST CLINICAL HISTORY: Atypical chest pain. COMPARISON STUDY: Chest x-ray dated 06/15/2014. TECHNIQUE: Following the IV administration of 92 cc of Optiray 320, CT angiogram of the chest was performed from the upper abdomen to the thoracic inlet utilizing the pulmonary embolus protocol. Images are reviewed in the axial, sagittal, and coronal planes. 3-D MIPS images are created and assessed. IV contrast was administered without complication. The examination is degraded by streak artifact from the patient's arms which could not be elevated above the chest. CT DOSE: 643.67 mGy.cm FINDINGS: Thyroid: Imaged portions of the thyroid gland are normal in size and attenuation. Thoracic aorta: There is minimal atherosclerotic calcification of the thoracic aorta, which is normal in caliber and demonstrates standard 3-vessel arch anatomy. No dissection is seen. Pulmonary vasculature: The pulmonary trunk is normal in caliber. There are no filling defects identified in main, lobar, or segmental pulmonary branches to suggest pulmonary embolus. Heart: The heart is normal in size and configuration, and without pericardial effusion. Lungs and pleural spaces: Evaluation of the lung parenchyma is degraded by expiratory motion artifact. No airspace consolidation or pleural effusion is identified. Minimal dependent atelectasis is noted. Scattered calcified granulomas are observed. The trachea and central airways are clear. Mediastinum: There is no mediastinal lymphadenopathy. Shirley: Clear. Axillae: There is no axillary lymphadenopathy. Upper abdomen: Partially visualized upper abdominal viscera is within normal limits. Skeletal structures: The skeletal structures appear osteopenic. No lytic or blastic bony lesions are seen. IMPRESSION: 1. There is no evidence of pulmonary embolus in the main, lobar, or segmental pulmonary arteries. 2. The lungs are clear. Electronically signed by: Piyush Danielson M.D. 11/18/2016 8:03 AM Dictated Date/Time: 11/18/2016 7:57 AM
[2016-11-18] MEDS: NSS + 20MEQ KCL 1000ML 1,000 ML IV SCH ×2 (08:08→17:28)
[2016-11-18] MEDS: ASPIRIN 81 MG ECTAB PO SCH (10:06)
[2016-11-18 12:00] VITALS: BP 127/82; PULSE 68; TEMP 36.7; O2SAT 97
--- NOTE | 2016-11-18 12:35 | Neurology Consultation ---
Neurology Consultation Date of Consultation: Nov 18, 2016. Attending Physician: Radhames Espinosa MD, PhD Primary Care Physician: Brady Ames M.D. Reason for Consultation: Strokelike symptoms History of Present Illness Source: patient, hospital records This is a 60-year-old female that presented to the ER after strokelike symptoms. She reported that Monday afternoon she had sudden onset of left facial droop, and her left arm did not feel right. Symptoms have persisted but have been slowly improving. She felt like he was more difficult for her to find words, but no specific aphasia or dysarthria. No trouble swallowing. No sudden loss of vision. She feels like her walking is okay. No lower extremity symptoms. She reports that when this initially happened she felt like her heart was fluttering and going to be out of her chest. No sick or illness symptoms. She is never had this happen before. No history of migraine headaches. No history of seizures. Patient reports that when she saw her hand rounder that he noted drooping of the left lower face and weakness of the left upper and lower extremity. Patient was then have a Holter monitor placed for workup of palpitations, but instead was sent to the hospital for evaluation. Patient has had a Holter monitor in 2012 that was unremarkable. Hemoglobin A1c and lipid panel is pending CTA of the head and neck based off of my recommendations last night to the ER is normal. Echocardiogram is pending. Patient reports she has had a previous echocardiogram that noted in large atrium and abnormal ventricle movement. MRI of the brain report and images reviewed by myself and normal. There is some minimal subcortical T2 hyperintensities that were nonspecific. Past Medical/Surgical History Medical Problems: (1) Facial droop Status: Acute (2) Heart palpitations Status: Acute (3) Left arm weakness Status: Acute (4) PVC (premature ventricular contraction) Status: Acute Depression/anxiety Heart palpitations Family History Mother with A. fib and a brain bleed. Remote relatives with cancer No family history of strokes or heart attacks at a young age. No family history of clotting disorders Social History Patient is normally independent in her activities of daily living. Works for the [employer]. No tobacco use. Occasional wine. No illegal drug use Smokeless Tobacco Use: No Alcohol Use: none Drug Use: none Marital Status: Housing Status: lives with significant other Occupation Status: employed Allergies Coded Allergies: No Known Allergies (Unverified , 11/17/16) Current Inpatient Medications Current Inpatient Medications Medications (Trade) Dose Ordered Sig/Roxann Route Start Time Stop Time Status Last Admin Dose Admin Potassium Chloride/Sodium Chloride (Nss + 20meq KCl 1000ml) 1,000 ml @ 100 mls/hr Q10H IV 11/17/16 21:15 12/17/16 21:14 11/18/16 08:08 100 MLS/HR Acetaminophen (Tylenol Tab) 650 mg Q4H PRN PO 11/17/16 19:15 12/17/16 19:14 Zolpidem Tartrate (Ambien Tab) 5 mg HSZ PRN PO 11/17/16 19:15 12/17/16 19:14 Lorazepam (Ativan Inj) 0.5 mg Q4H PRN IV 11/17/16 19:15 12/17/16 19:14 Magnesium Hydroxide (Milk Of Magnesia Susp) 30 ml Q6H PRN PO 11/17/16 19:15 12/17/16 19:14 Diphenhydramine HCl (Benadryl Inj) 25 mg Q4H PRN IV 11/17/16 19:15 12/17/16 19:14 Al Hydrox/Mg Hydrox/ Simethicone 15 ml 15 ml Q4H PRN PO 11/17/16 19:15 12/17/16 19:14 Promethazine HCl/ Sodium Chloride (Phenergan Inj/ Nss 50ml) 50.5 ml @ 202 mls/hr Q4H PRN IV 11/17/16 19:15 12/17/16 19:14 Ondansetron HCl 4 mg 4 mg Q6H PRN IV 11/17/16 19:15 12/17/16 19:14 Lorazepam/Syringe (Ativan Inj/ Syringe) 1 ml @ 1 mls/min Q4H PRN IV 11/17/16 21:00 12/17/16 20:59 Ioversol (Optiray 320) 100 ml UD PRN IV 11/17/16 21:15 11/21/16 21:14 Miscellaneous (Iv Fluids Completed) 1 ea PRN PRN N/A 11/17/16 21:30 11/17/17 21:29 Aspirin (Ecotrin Tab) 81 mg QAM PO 11/18/16 09:00 12/18/16 08:59 11/18/16 10:06 81 MG Review of Systems Complete review of systems is otherwise negative except for the above noted in history of present illness. Physical Exam Vital Signs (Past 24 Hrs): Date Time Temp Pulse Resp B/P Pulse Ox O2 Delivery O2 Flow Rate FiO2 11/18/16 12:00 36.7 68 18 127/82 97 Room Air 11/18/16 08:00 36.6 76 14 105/60 96 Room Air 11/18/16 08:00 97 Room Air 11/18/16 04:00 36.8 70 12 113/72 96 Room Air 11/18/16 04:00 97 Room Air 11/17/16 23:59 97 Room Air 11/17/16 23:02 36.7 84 18 110/68 97 Room Air 11/17/16 20:55 36.7 73 18 131/77 97 Room Air 11/17/16 19:24 88 24 139/71 96 Room Air 11/17/16 17:54 101 18 126/66 96 Room Air 11/17/16 16:05 86 20 127/77 97 Room Air 11/17/16 14:20 88 20 133/81 96 Room Air 11/17/16 13:27 94 11/17/16 13:05 83 16 129/87 100 Room Air Gen.: Patient is alert and sitting in bed, in no acute distress. HEENT: Normocephalic /atraumatic, no scleral icterus Heart: Regular rate and rhythm Extremities: No gross deformities or rashes noted Neurological examination: Mental status: Patient is alert and oriented x3. Attention and concentration normal for the situation. Good fund of knowledge. Able to give her own history. Speech is fluent without any dysarthria or aphasia noted Cranial nerve: Funduscopic examination was unremarkable. No papilledema. Pupils equally round and reactive to light. Extraocular muscles intact without nystagmus. No facial asymmetry noted. Facial sensation intact. Tongue is midline. Good palatal elevation. Good shoulder shrug bilaterally. Hearing grossly intact to voice. (Patient did show me a picture of when this initially happened which made it showed a left lower facial droop, although there was no active smile or facial activity at the time) Strength: 5/5 both proximal and distally on the right upper and lower extremity. Patient had some very mild pronator drift on the left upper extremity. Left upper extremity strength was 4/5 both proximally and distally. Left lower extremity was 5/5 with the exception of 4/5 with plantar and dorsiflexion. Tone is normal. Sensation: Grossly intact to light touch in all extremities. Maybe some slight difference in subjective sensation between extremities. No sensory extinction. Deep tendon reflexes: +2 in bilateral biceps, brachioradialis and patellar. Toes were downgoing to plantar stimulation Coordination: Patient had good finger to nose without dysmetria Station within the bed was normal Laboratory Results Past 24 Hours: 11/18/16 03:14 Red Blood Count 3.45, Mean Corpuscular Volume 93.0, Mean Corpuscular Hemoglobin 32.2, Mean Corpuscular Hemoglobin Concent 34.6, Mean Platelet Volume 9.9, Neutrophils (%) (Auto) 49.2, Lymphocytes (%) (Auto) 38.1, Monocytes (%) (Auto) 9.6, Eosinophils (%) (Auto) 2.2, Basophils (%) (Auto) 0.9, Neutrophils # (Auto) 2.71, Lymphocytes # (Auto) 2.10, Monocytes # (Auto) 0.53, Eosinophils # (Auto) 0.12, Basophils # (Auto) 0.05 11/18/16 03:14 11/18/16 04:55 Test 11/17/16 19:45 11/17/16 22:42 11/18/16 03:14 11/18/16 04:55 Total Bilirubin 0.3 mg/dl (0.2-1) Aspartate Amino Transf (AST/SGOT) 13 U/L (15-37) Alanine Aminotransferase (ALT/SGPT) 18 U/L (12-78) Alkaline Phosphatase 74 U/L (45-117) Total Protein 7.1 gm/dl (6.4-8.2) Albumin 3.9 gm/dl (3.4-5.0) Globulin 3.2 gm/dl (2.5-4.0) Albumin/Globulin Ratio 1.2 (0.9-2) Thyroid Stimulating Hormone (TSH) 2.910 uIu/ml (0.300-4.500) Free Thyroxine 1.11 ng/dl (0.80-1.60) Free Triiodothyronine 3.53 pg/ml (2.30-4.20) Hepatitis C Antibody Screen NEG (NEG) Urine Opiates Screen NEG (NEG) Urine Methadone, Qualitative NEG (NEG) Urine Barbiturates NEG (NEG) Urine Phencyclidine (PCP) Level NEG (NEG) Ur Amphetamine/Methamphetamine NEG (NEG) MDMA (Ecstasy) Screen POS (NEG) Urine Benzodiazepines Screen NEG (NEG) Urine Cocaine Metabolite NEG (NEG) Urine Marijuana (THC) NEG (NEG) White Blood Count 5.51 K/uL (4.8-10.8) Red Blood Count 3.45 M/uL (4.2-5.4) Hemoglobin 11.1 g/dL (12.0-16.0) Hematocrit 32.1 % (37-47) Mean Corpuscular Volume 93.0 fL (80-100) Mean Corpuscular Hemoglobin 32.2 pg (25-34) Mean Corpuscular Hemoglobin Concent 34.6 g/dl (32-36) Platelet Count 293 K/uL (130-400) Mean Platelet Volume 9.9 fL (7.4-10.4) Neutrophils (%) (Auto) 49.2 % Lymphocytes (%) (Auto) 38.1 % Monocytes (%) (Auto) 9.6 % Eosinophils (%) (Auto) 2.2 % Basophils (%) (Auto) 0.9 % Neutrophils # (Auto) 2.71 K/uL (1.4-6.5) Lymphocytes # (Auto) 2.10 K/uL (1.2-3.4) Monocytes # (Auto) 0.53 K/uL (0.11-0.59) Eosinophils # (Auto) 0.12 K/uL (0-0.5) Basophils # (Auto) 0.05 K/uL (0-0.2) RDW Standard Deviation 44.6 fL (36.4-46.3) RDW Coefficient of Variation 13.0 % (11.5-14.5) Immature Granulocyte % (Auto) 0.0 % Immature Granulocyte # (Auto) 0.00 K/uL (0.00-0.02) Anion Gap 7.0 mmol/L (3-11) Est Creatinine Clear Calc Drug Dose 91.1 ml/min Estimated GFR () 113.8 Estimated GFR (Non- 98.2 BUN/Creatinine Ratio 25.2 (10-20) Calcium Level 7.3 mg/dl (8.5-10.1) Magnesium Level 2.1 mg/dl (1.8-2.4) Test 11/18/16 11:12 11/18/16 11:28 Creatine Kinase MB Ratio (0-3.0) Imaging As noted above in history of present illness Impression This is a 60-year-old right-handed female who presents with acute stroke like symptoms of left lower facial droop, left upper extremity paresthesias, and mild left hemiplegia which has been slowly improving over the last 2 days with initial associated symptoms of heart palpitations. No known stroke risk factors. Residual neurological deficits of mild left hemiplegia. Overall even though no stroke was imaged on MRI, I am concerned that the patient could've had a tiny non-imageable brainstem stroke causing her symptoms. Plan Agree with initiation of aspirin 81 mg daily for stroke prevention. Agree with cardiac workup for cardioembolic sources for stroke. Agree that if Hospital cardiac workup is unremarkable, likely will need a 30 day cardiac event monitor to rule out A. fib as this would change medical management. Echocardiogram results pending Hemoglobin A1c and lipid profile for modifiable stroke risk factors are pending Recommend PT and OT evaluation Blood pressure recommendations while in hospital: Permissive hypertension 175/95 -130/80 Avoid hypotension and dehydration Stroke risk factor modifications and recommendations: Blood pressure recommendations for the first month post hospital discharge 150/ 90-130/80, and after that blood pressure recommendations 130/80-110/70 Total cholesterol goal 100- 200 and LDL goal less than 100 Hemoglobin A1c goal less than 7 Encourage cardiovascular exercise at least 3 times a week for 30 minutes. No activity restrictions from a neurological standpoint Follow-up in neurology clinic in 1 month for post stroke hospital follow-up. Thank you for allowing me to participate in this patient's care. If there is any questions or concerns, feel free to call/page me.
--- NOTE | 2016-11-18 15:00 | ECHOCARDIOGRAM REPORT ---
*NOTICE TO RECEIVING DEMOCRAT AGENCY This information is strictly Confidential and protected under [place] law. [place] law prohibits you from making any further disclosure of this information unless further disclosure is expressly permitted by the written consent of the person to whom it pertains or is authorized by law. A general authorization for the release of medical or other information is not sufficient for this purpose. Hospital accepts no responsibility if the information is made available to any other person, INCLUDING THE PATIENT. Interpretation Summary * Name: ORTEGA ROSAS Study Date: 11/18/2016 09:59 AM BP: 105/60 mmHg * Patient Location: C.2T\S\S239\S\2 HR: 78 * : 1955 (M/d/yyyy) Gender: Female Height: 63 in * Age: 60 yrs Ethnicity: CA Weight: 165 lb * Ordering Physician: Max Turcios * Referring Physician: Etienne Lucero * Performed By: Annalee Berrios RCS * * Reason For Study: PAC'S / MAT RATE CONTROLLED * BSA: 1.8 m2 * Normal biventricular systolic function. * Left ventricular diastolic dysfunction. * Normal chamber dimensions. * Trace mitral and tricuspid regurgitation. Procedure Details * A complete two-dimensional transthoracic echocardiogram was performed (2D, M-mode, Doppler and color flow Doppler). Left Ventricle * The left ventricle is normal in size. * There is normal left ventricular wall thickness. * Ejection Fraction = 55-60%. * A full diastolic examination was done with clinical findings of Class I diastolic dysfunction. * The left ventricular wall motion is normal. Right Ventricle * The right ventricle is normal in size and function. Atria * The left atrial size is normal. * Right atrial size is normal. * No ASD detected; PFO is not assessed. Mitral Valve * The mitral valve is normal. * There is no mitral valve stenosis. * There is trace mitral regurgitation. Tricuspid Valve * The tricuspid valve is normal. * There is trace tricuspid regurgitation. * Right ventricular systolic pressure is normal. Aortic Valve * The aortic valve is trileaflet. * The aortic valve opens well. * No aortic regurgitation is present. Pulmonic Valve * The pulmonic valve is not well visualized. * There is no significant pulmonary regurgitation. Great Vessels * The aortic root is normal size. Pericardium/Pleural * There is no pericardial effusion. Great Vessels * Normal inferior vena cava diameter and respiratory variation suggests normal central venous pressure. MMode 2D Measurements and Calculations IVSd 0.81 cm IVSs 1.3 cm LVIDd 3.9 cm LVIDs 2.8 cm LVPWd 1.0 cm LVPWs 1.3 cm IVS/LVPW 0.78 FS 28.5 % EDV(Teich) 66.8 ml ESV(Teich) 29.7 ml EF(Teich) 55.6 % EDV(cubed) 60.3 ml ESV(cubed) 22.1 ml EF(cubed) 63.4 % % IVS thick 55.8 % % LVPW thick 27.1 % LV mass(C)d 110.8 grams LV mass(C)dI 62.2 grams/m\S\2 LV mass(C)s 112.9 grams LV mass(C)sI 63.4 grams/m\S\2 SV(Teich) 37.1 ml SI(Teich) 20.8 ml/m\S\2 SV(cubed) 38.2 ml SI(cubed) 21.5 ml/m\S\2 Ao root diam 3.1 cm Ao root area 7.5 cm\S\2 LA dimension 3.0 cm LA/Ao 0.96 LVOT diam 2.0 cm LVOT area 3.2 cm\S\2 LVAd ap4 33.3 cm\S\2 LVLd ap4 8.2 cm EDV(MOD-sp4) 112.9 ml EDV(sp4-el) 114.7 ml LVAs ap4 19.6 cm\S\2 LVLs ap4 6.7 cm ESV(MOD-sp4) 47.0 ml ESV(sp4-el) 48.6 ml EF(MOD-sp4) 58.3 % EF(sp4-el) 57.7 % LVAd ap2 33.1 cm\S\2 LVLd ap2 8.1 cm EDV(MOD-sp2) 110.9 ml EDV(sp2-el) 114.4 ml LVAs ap2 21.8 cm\S\2 LVLs ap2 7.2 cm ESV(MOD-sp2) 54.3 ml ESV(sp2-el) 55.8 ml EF(MOD-sp2) 51.0 % EF(sp2-el) 51.2 % LVLd %diff -0.96 % EDV(MOD-bp) 111.6 ml LVLs %diff 7.0 % ESV(MOD-bp) 52.4 ml EF(MOD-bp) 53.0 % SV(MOD-sp4) 65.8 ml SI(MOD-sp4) 36.9 ml/m\S\2 SV(MOD-sp2) 56.5 ml SI(MOD-sp2) 31.7 ml/m\S\2 SV(MOD-bp) 59.1 ml SI(MOD-bp) 33.2 ml/m\S\2 SV(sp4-el) 66.1 ml SI(sp4-el) 37.1 ml/m\S\2 SV(sp2-el) 58.6 ml SI(sp2-el) 32.9 ml/m\S\2 Doppler Measurements and Calculations MV E max kehinde 80.9 cm/sec MV A max kehinde 107.8 cm/sec MV E/A 0.75 MV P1/2t max kehinde 83.7 cm/sec MV P1/2t 34.6 msec MVA(P1/2t) 6.4 cm\S\2 MV dec slope 708.2 cm/sec\S\2 MV dec time 0.13 sec Ao V2 max 140.2 cm/sec Ao max PG 7.9 mmHg Ao max PG (full) 5.1 mmHg KENY(V,A) 1.9 cm\S\2 KENY(V,D) 1.9 cm\S\2 LV V1 max PG 2.8 mmHg LV V1 max 83.6 cm/sec PA V2 max 131.8 cm/sec PA max PG 7.0 mmHg TR max kehinde 236.5 cm/sec
[2016-11-18 15:56] VITALS: BP 133/69; PULSE 85; TEMP 36.9; O2SAT 96
[2016-11-18 19:37] VITALS: BP 131/66; PULSE 83; TEMP 36.8; O2SAT 96
[2016-11-18 23:53] VITALS: BP 117/77; PULSE 74; TEMP 37; O2SAT 94
[2016-11-19] MEDS: NSS + 20MEQ KCL 1000ML 1,000 ML IV SCH (03:34)
[2016-11-19 04:18] VITALS: BP 109/72; PULSE 72; TEMP 37.1; O2SAT 96
[2016-11-19 07:29] LABS: BASO % 0.6 %; BASO ABS # 0.03 K/uL (0-0.2); COMPLETE YES; EOS % 2.8 %; HEMATOCRIT 36.8 % (37-47); IG% 0.2 %; LYMPH % 37.8 %; LYMPH ABS # 1.76 K/uL (1.2-3.4); MEAN CELL VOLUME 94.4 fL (80-100); MEAN CORPUSCULAR HEMOGLOBIN 31.3 pg (25-34); MEAN CORPUSCULAR HGB CONC 33.2 g/dl (32-36); MEAN PLATELET VOLUME 9.7 fL (7.4-10.4); MONO % 10.9 %; NEUT % 47.7 %; PLATELET COUNT 295 K/uL (130-400); WHITE BLOOD COUNT 4.66 K/uL (4.8-10.8)
[2016-11-19 07:30] VITALS: BP 111/71; PULSE 72; TEMP 36.7; O2SAT 99
[2016-11-19 08:01] LABS: BUN/CREATININE RATIO 18.8 (10-20); CALCIUM 8.4 mg/dl (8.5-10.1); CHOLESTEROL/HDL RATIO 2.6; CREATININE 0.7 mg/dl (0.60-1.20); MAGNESIUM 2.1 mg/dl (1.8-2.4)
[2016-11-19] MEDS: ASPIRIN 81 MG ECTAB PO SCH (08:19)
[2016-11-19 08:39] LABS: ESTIMATED AVERAGE GLUCOSE 108 mg/dl; HA1C FLAG Normal (Normal)
[2016-11-19] MEDS ORDERED: ASPEC81 PO (11:09)
--- NOTE | 2016-11-19 11:16 | Discharge Instructions ---
Discharge Instructions Admission Reason for Admission: Multifocal Atrial Tachycardia, Pac Discharge Discharge Diagnosis / Problem: TIA Discharge Goals Goal(s): Decrease discomfort, Improve function, Increase independence, Improve disease control, Improve nutritional status, Learn about illness, Diagnostic testing, Therapeutic intervention, Prevent Disease Progression, Specific goals Activity Recommendations Activity Limitations: resume your previous activity . Instructions / Follow-Up Instructions / Follow-Up you possible has mini stroke you need to continue Aspirin 81 mg daily for stroke prevention. your echo cardiogram showed mild "diastolic dysfunction", you need to follow up with your pcp. you need to have a 30 day cardiac event monitor to rule out Atrial . fib , your pcp can arrange this test you need to follow-up with neurologist Dr. Flores in neurology clinic in 1 month you was on Premarin prior to this admission, I would like you to discuss with the PCP about the risk and benefit, and then decide if to start on not - you need to follow up with your primary care physician in 1 week, - take medication as instructed, never overdose or any misuse, or take with alcohol, because misuse of medicine may cause organ damage or , call your primary care physician if have questions of medicaitons. - call your primary care physician OR go to local emergency room if has any fever/chill, chest pain, shortness of breathing, nausea/vomiting/abdominal pain , facial droop/slurry speech/local weakness, or if has any questions. - fall precaution - diet as instructed - you should understand that it is important to follow up the above instruction , and "not following the above instruction" may cause delayed or missed care of your medical conditions which may cause permanent organ damage and even . Risk Factors for Stroke: You can reduce your chances of stroke by working with your medical provider to adopt a healthy lifestyle. Some specific ways to lower your chance of stroke are: * If you are a smoker, now is the time to stop smoking cigarettes * If you are diabetic, improve the control of your blood sugars * Avoid excessive amounts of alcohol * Control high blood pressure * Lose weight if you are overweight * Be sure to lead an active lifestyle * Eat a healthy diet low in salt, cholesterol and fat You should know about other risk factors for stroke that you are unable to control. These include: * Age 55 years or older * Male gender * Certain racial groups: , or / * Family History of Stroke, Mini stroke or Heart Attack * Sickle Cell Disease Follow Up: It is important for you to keep your follow up appointments with your medical provider. Current Hospital Diet Patient's current hospital diet: AHA Diet (Heart Healthy) Discharge Diet Recommended Diet: AHA Diet (Heart Healthy) Pending Studies Studies pending at discharge: no Laboratory Results Hemoglobin A1c Test 11/19/16 07:15 Range/Units Estimated Average Glucose 108 mg/dl Hemoglobin A1c 5.4 4.5-5.6 % Lipid Panel Test 11/19/16 07:15 Range/Units Triglycerides Level 43 0-150 mg/dl Cholesterol Level 194 0-200 mg/dl HDL Cholesterol 76 mg/dl Cholesterol/HDL Ratio 2.6 LDL Cholesterol, Calculated 109 mg/dl Medical Emergencies . Who to Call and When: Medical Emergencies: Call 911 immediately if you experience any of the following warning signs and symptoms of Stroke: * Sudden numbness or weakness of the face, arm or leg, especially on one side of the body * Sudden confusion, trouble speaking or understanding * Sudden trouble seeing in one or both eyes * Sudden trouble walking, dizziness, loss of balance or coordination * Sudden severe headache with no cause Do not delay calling 911 if you experience any warning signs or symptoms of a stroke. Delay in seeking medical attention may affect what treatments can be given to you. . Non-Emergent Contact Non-Emergency issues call your: Primary Care Provider . . "Provider Documentation" section prepared by Radhames Espinosa. Stroke Core Measures Reason no t-PA for Stroke: Treatment not indicated Reason no antithrom by day 2: Treatment provided - N/A Reason no antithrom at D/C: Treatment provided - N/A Reason no statin at D/C: Treatment not indicated (pt's total cholestrol is less than 200, to give statin in this case may increase risk of intracrainal bleeding) Reason no anticoag w/a fib: Treatment provided - N/A VTE Core Measure Inpt VTE Proph given/why not?: SCD's
[2016-11-19 12:37] VITALS: BP 115/75; PULSE 68; TEMP 36.7; O2SAT 99
--- NOTE | 2016-11-19 14:36 | Discharge Summary ---
Discharge Summary Admission Date: Nov 17, 2016 at 19:17 Discharge Date: Nov 19, 2016 Discharge Disposition: Home Principal Diagnosis: TIA Problems/Secondary Diagnoses: "diastolic dysfunction", Procedures: no Consultations: neuro Medication Reconciliation New Medications: Aspirin (Aspirin EC Low Dose) 81 Mg Ectab 81 MG PO QAM for 30 Days Continued Medications: Bupropion (Wellbutrin Sr) 200 Mg Ertab 200 MG PO BID, TAB Discontinued Medications: Estrogens, Conjugated (Premarin) 0.3 Mg Tab 0.3 MG PO DAILY, TAB Discharge Exam doing well, no c/o Review of Systems: Constitutional: No chills, No fatigue, No fever, No problem reported, No sweats, No weakness, No weight loss Eyes: No diplopia, No discharge, No eye pain, No problem reported, No redness, No worsening of vision ENT: No dental problems, No hearing loss, No nasal symptoms, No problem reported, No sore throat, No tinnitus, No trouble swallowing, No unusual epistaxis Respiratory: No cough, No dyspnea at rest, No dyspnea on exertion, No hemoptysis, No problem reported, No shortness of breath, No sputum, No wheezing Cardiovascular: No PND, No chest pain, No claudication, No edema, No orthopnea, No palpitations, No problem reported Abdomen: No GI bleeding, No constipation, No diarrhea, No nausea, No pain, No problem reported, No vomiting Genitourinary - Female: No dysmenorrhea, No dysuria, No hematuria, No menorrhagia, No metrorrhagia, No , No problem reported, No rash, No urinary frequency, No urinary incontinence, No urinary retention, No urinary urgency, No vaginal bleeding, No vaginal discharge, No vaginal itching, No vulvodynia Neurologic: No balance problems, No memory loss, No numbness/tingling, No paralysis, No problem reported, No vertigo, No weakness Psychiatric: + anhedonism, + anxiety, + depression symptoms, + insomnia, + problem reported, + substance abuse Endocrine: No excessive thirst, No excessive urination, No fatigue, No problem reported Hematologic / Lymphatic: No abnormal bleeding/bruising, No clotting problems , No night sweats, No problem reported, No swollen lymph nodes Integumentary: No bleeding, No color change, No itch, No new/changing skin lesions, No problem reported, No rash Physical Exam: General Appearance: WD/WN, no apparent distress Eyes: normal inspection, PERRL, EOMI ENT: normal ENT inspection, hearing grossly normal, TMs normal Neck: supple, no adenopathy, thyroid normal Respiratory/Chest: chest non-tender, lungs clear, normal breath sounds, no respiratory distress, no accessory muscle use Cardiovascular: regular rate, rhythm, no edema, no gallop, no JVD Abdomen / GI: normal bowel sounds, soft, no pulsatile mass Extremities: normal inspection, no calf tenderness, normal capillary refill Neurologic/Psychiatric: antiquer II-XII nml as tested, no motor/sensory deficits , alert, normal mood/affect, normal reflexes Skin: normal color, warm/dry Hospital Course The patient is a 60-year-old female who is referred by her pairer substandard Dr. Lucero to the emergency department after she reported to him that she had left- sided facial weakness and arm weakness that had begun the day before , and requested that she get an MRI the brain. She reports an episode of chest pain that occurred in September and then in October, with the worst being one week ago. She is referred to cardiology by Dr. Ames, who had ordered an EKG which was noted to be abnormal and echo which showed moderate left atrial enlargement and left ventricular diastolic dysfunction. Symptoms she developed on 11/16, included jitteriness in her chest, that occurred at the same time as the weakness of her left side of her face and arm. Multifocal atrial tachycardia on rhythm monitor/EKG with PACs: - Admit to the telemetry unit for cardiac rhythm monitoring- cardiac monitoring reviewed, no acute events, PVCs noted. (/) - Trend cardiac enzymes x3- negative - TSH checked, 2.910 - Neurologist input appreciated, need to follow-up with neurologist in neurology clinic in 1 month for post stroke, Dr. Lucero, please follow up about this Transient neurologic symptoms primarily left-sided facial weakness: no any new episode - CT of the head- No acute intracranial abnormality. - MRI of the brain- No acute intracranial abnormality. - CTA of the head and neck- No evidence of hemodynamically significant carotid or vertebral artery stenosis. No evidence of dissection. No acute intracranial abnormality. Unremarkable CT angiogram of the brain. - Chest/thorax CTA- There is no evidence of pulmonary embolus in the main, lobar , or segmental pulmonary arteries. The lungs are clear. - Start ASA 81 mg PO daily Depression: - Continue Bupropion SR 200 mg PO BID - ECHO done on 11/18/2016: * Normal biventricular systolic function. * Left ventricular diastolic dysfunction. * Normal chamber dimensions. * Trace mitral and tricuspid regurgitation. Patient is on Premarin, which educated estrogen, she was asking to restarted on not, I counseling her and that is estrogen increase in the thromboembolism events and increase the risk of stroke, I will like her to discuss with the PCP about the risk and benefit, and then decide if to start on not, patient agreed , pcp please f/i about this. Instructions / Follow-Up you possible has mini stroke you need to continue Aspirin 81 mg daily for stroke prevention. your echo cardiogram showed mild "diastolic dysfunction", you need to follow up with your pcp. you need to have a 30 day cardiac event monitor to rule out Atrial . fib , your pcp can arrange this test you need to follow-up with neurologist Dr. Flores in neurology clinic in 1 month you was on Premarin prior to this admission, I would like you to discuss with the PCP about the risk and benefit, and then decide if to start on not - you need to follow up with your primary care physician in 1 week, - take medication as instructed, never overdose or any misuse, or take with alcohol, because misuse of medicine may cause organ damage or , call your primary care physician if have questions of medicaitons. - call your primary care physician OR go to local emergency room if has any fever/chill, chest pain, shortness of breathing, nausea/vomiting/abdominal pain , facial droop/slurry speech/local weakness, or if has any questions. - fall precaution - diet as instructed - you should understand that it is important to follow up the above instruction , and "not following the above instruction" may cause delayed or missed care of your medical conditions which may cause permanent organ damage and even . Total Time Spent: Greater than 30 minutes This includes examination of the patient, discharge planning, medication reconciliation, and communication with other providers. Discharge Instructions Please refer to the electronic Patient Visit Report (Discharge Instructions) for additional information. Additional Copies To Brady Ames M.D.; Etienne Lucero, DO
== END 2016-11-19 12:45 | disposition home or self-care (01) ==
LOC: ENRESERVTM → ENRESERVDT → C.EDB 11:00 → C.2T 19:17
PROVIDERS: ADMIT Hospitalist; ATTEND Hospitalist
DX: G45.9 Transient cerebral ischemic attack, unspecified (principal); I47.1 Supraventricular tachycardia; F32.9 Major depressive disorder, single episode, unspecified; Z90.710 Acquired absence of both cervix and uterus

== ENCOUNTER 2016-11-21 18:23 | Observation (INO) | payer BC, OTHER ==
[~2016-11-21] VITALS: Ht 160 cm; Wt 71.4 kg
[~2016-11-21 18:23] MED LIST: ASPEC81 PO; BUPR200T2 PO
[2016-11-21] MEDS ORDERED: SODIUM CHLORIDE 0.9% 1000ML 1,000 ML IV SCH (19:58)
[2016-11-21 20:29] LABS: BASO % 0.5 %; BASO ABS # 0.04 K/uL (0-0.2); COMPLETE YES; EOS % 1.5 %; HEMATOCRIT 40.2 % (37-47); IG% 0.1 %; LYMPH % 29.3 %; LYMPH ABS # 2.49 K/uL (1.2-3.4); MEAN CELL VOLUME 91.6 fL (80-100); MEAN CORPUSCULAR HEMOGLOBIN 31.2 pg (25-34); MEAN CORPUSCULAR HGB CONC 34.1 g/dl (32-36); MEAN PLATELET VOLUME 9.8 fL (7.4-10.4); MONO % 6.7 %; NEUT % 61.9 %; PLATELET COUNT 368 K/uL (130-400); RED BLOOD COUNT 4.39 M/uL (4.2-5.4)
--- NOTE | 2016-11-21 20:33 | DIAGNOSTIC IMAGING REPORT ---
CHEST ONE VIEW PORTABLE CLINICAL HISTORY: Stroke COMPARISON STUDY: 06/15/2014 FINDINGS: The cardiac and mediastinal contours are normal. There is no evidence of focal pulmonary consolidation. There is no evidence of failure. No pleural effusions are visualized.[ IMPRESSION: No active disease in the chest. Electronically signed by: Donovan Nazario M.D. 11/21/2016 8:32 PM Dictated Date/Time: 11/21/2016 8:32 PM
--- NOTE | 2016-11-21 20:40 | EMERGENCY ROOM VISIT NOTE ---
History Report prepared by Rajat: Maikol King Under the Supervision of: Dr. Unruly Berry M.D. First contact with patient: 19:55 Chief Complaint: CARDIAC ASSESSMENT Stated Complaint: AFIB, REFERRED BY DR LUCERO Nursing Triage Summary: See orange note on chart. Sent from Dr. Sky office. Left sided facial droop, confusion. Palpitations. Has problem pulling together words. Slow speech, states it happened during her asmissin here. History of Present Illness The patient is a 60 year old female who presents to the Emergency Room with worsening neurological deficits that were noted at a follow up appointment today. The patient was following up with Dr. Lucero ([facility]) today after being discharged from the hospital two days ago. The patient was in the hospital for three days after being diagnosed with a TIA. The patient was experiencing a facial droop and speech slurring when the TIA occurred. The patient's symptoms initially improved upon being released. When she went to see Dr. Lucero today, he noted that her speech slur and facial droop appear to have worsened again. The patient notes that her left side has been weaker since the TIA. The patient also complains of palpitations. The patient has also experienced increased confusion. Source of History: patient Onset: today Position: other (neurologic) Quality: other (neurolgoical deficits) Timing: worsening Associated Symptoms: + weakness Note: Patient is positive for confusion and palpitations. Review of Systems See HPI for pertinent positives & negatives. A total of 10 systems reviewed and were otherwise negative. Past Medical & Surgical Medical Problems: (1) Facial droop (2) Multifocal atrial tachycardia (3) PAC (premature atrial contraction) (4) Stroke-like symptoms Surgical Problems: (1) H/O: hysterectomy Family History No pertinent family history Social History Smoking Status: Never Smoker Drug Use: none Marital Status: Housing Status: lives with significant other Occupation Status: employed Current/Historical Medications Scheduled Aspirin (Aspirin EC Low Dose), 81 MG PO QAM Bupropion Hcl (Wellbutrin Sr), 200 MG PO BID Scheduled PRN Lorazepam (Lorazepam), 1 TAB PO Q4 PRN for Anxiety Nitrofurantoin (Nitrofurantoin Monohydrat), 1 CAP PO BID PRN for RECURRENT UTIS Allergies Coded Allergies: No Known Allergies (Unverified , 11/17/16) Physical Exam Vital Signs Date Time Temp Pulse Resp B/P Pulse Ox O2 Delivery O2 Flow Rate FiO2 11/21/16 21:05 84 18 124/60 98 Room Air 11/21/16 20:17 99 11/21/16 19:59 98 Room Air 11/21/16 18:30 98 Room Air 11/21/16 18:27 37.0 83 18 141/87 98 Room Air Physical Exam GENERAL: Patient is a healthy-appearing well-nourished HEAD: Normocephalic atraumatic EYES: Ocular movements intact pupils equal and react to light OROPHARYNX mucous membranes are moist no exudates present no erythema or edema present NECK: Supple no nuchal rigidity CHEST: Good equal expansion LUNGS: Clear and equal to auscultation CARDIAC: Normal S1 and S2 ABDOMEN: Soft nontender no guarding BACK: No CVA tenderness EXTREMITIES: No pain upon palpation normal muscle strength in all groups no clubbing cyanosis or edema NEURO: Patient is following commands is answering questions appropriately. Alert and oriented x3 Left sided facial droop. 4/5 strength to the left upper and left lower extremities. Medical Decision & Procedures ER Provider Diagnostic Interpretation: X-ray results as stated below per my interpretation and radiologist interpretation. Other radiology results as stated below per my review and radiologist interpretation: CT HEAD WITHOUT CONTRAST (CT) CLINICAL HISTORY: Stroke COMPARISON STUDY: Head CT dated to , MRI the brain dated to TECHNIQUE: Axial CT of the brain is performed from the vertex to the skull base. IV contrast was not administered for this examination. CT DOSE: 537.48 mGy.cm FINDINGS: No intra or extra-axial mass lesions are visualized. There is no CT evidence of acute cortical infarction. There is no evidence of midline shift. There is no acute hemorrhage. No calvarial fractures are visualized. There is no evidence of pathologic ventricular dilatation. There is no evidence of acute sinusitis IMPRESSION: No acute intracranial findings Electronically signed by: Donovan Nazario M.D. 11/21/2016 8:51 PM Dictated Date/Time: 11/21/2016 8:50 PM CHEST ONE VIEW PORTABLE CLINICAL HISTORY: Stroke COMPARISON STUDY: 06/15/2014 FINDINGS: The cardiac and mediastinal contours are normal. There is no evidence of focal pulmonary consolidation. There is no evidence of failure. No pleural effusions are visualized.[ IMPRESSION: No active disease in the chest. Electronically signed by: Donovan Nazario M.D. 11/21/2016 8:32 PM Dictated Date/Time: 11/21/2016 8:32 PM Laboratory Results Test 11/21/16 20:10 11/21/16 20:12 Immature Granulocyte % (Auto) 0.1 % White Blood Count 8.50 K/uL (4.8-10.8) Red Blood Count 4.39 M/uL (4.2-5.4) Hemoglobin 13.7 g/dL (12.0-16.0) Hematocrit 40.2 % (37-47) Mean Corpuscular Volume 91.6 fL (80-100) Mean Corpuscular Hemoglobin 31.2 pg (25-34) Mean Corpuscular Hemoglobin Concent 34.1 g/dl (32-36) Platelet Count 368 K/uL (130-400) Mean Platelet Volume 9.8 fL (7.4-10.4) Neutrophils (%) (Auto) 61.9 % Lymphocytes (%) (Auto) 29.3 % Monocytes (%) (Auto) 6.7 % Eosinophils (%) (Auto) 1.5 % Basophils (%) (Auto) 0.5 % Neutrophils # (Auto) 5.26 K/uL (1.4-6.5) Lymphocytes # (Auto) 2.49 K/uL (1.2-3.4) Monocytes # (Auto) 0.57 K/uL (0.11-0.59) Eosinophils # (Auto) 0.13 K/uL (0-0.5) Basophils # (Auto) 0.04 K/uL (0-0.2) Immature Granulocyte # (Auto) 0.01 K/uL (0.00-0.02) Prothrombin Time 10.7 SECONDS (9.0-12.0) Prothromb Time International Ratio 1.0 (0.9-1.1) Activated Partial Thromboplast Time 26.3 SECONDS (21.0-31.0) Partial Thromboplastin Ratio 1.0 Total Creatine Kinase 59 U/L (26-192) Creatine Kinase MB 0.5 ng/ml (0.5-3.6) Creatine Kinase MB Ratio 0.8 (0-3.0) Troponin I < 0.015 ng/ml (0-0.045) Lyme Disease IgG Antibody NEG (NEG) Lyme Disease IgM Antibody NEG (NEG) Bedside Prothrombin Time INR 1.0 (0.9-1.1) Labs reviewed by ED physician. Medications Administered Medications (Trade) Dose Ordered Sig/Roxann Route Start Time Stop Time Status Last Admin Dose Admin Sodium Chloride (Nss 1000ml) 1,000 ml @ 50 mls/hr Q20H IV 11/21/16 19:58 11/21/16 23:13 DC 11/21/16 20:20 50 MLS/HR ECG Indication: palpitations Rate (beats per minute): 95 Rhythm: sinus with SA Findings: no acute ischemic change, no ectopy ED Course 1957: Sodium Chloride 1000 ml @ 99 mls/hr. 2030: Past medical records reviewed. The patient was evaluated in room C2b. A complete history and physical examination was performed. 2137: Spoke with Dr. Hoff, [facility]. The patient will be evaluated. Medical Decision Differential diagnosis: Etiologies such as metabolic, infection, hypo/hyperglycemia, electrolyte abnormalities, cardiac sources, intracerebral event, toxicologic, neurologic, as well as others were entertained. This is a 60-year-old female who presents emergency department complaining of left-sided facial droop as well as 4-5 strength to the left arm and left leg. The patient just had a full workup for stroke alert however the symptoms worsen today. For this reason a CAT scan of the head was repeated. I did discuss the case with the hospitalist service who agreed to admit the patient. Patient family were in agreement with the treatment plan. Consults Time Called: 2129 Consulting Physician: Dr. Hoff [facility]. Returned Call: [phone]: Spoke with Dr. Hoff, [facility]. The patient will be evaluated. Impression Primary Impression: Facial droop Scribe Attestation The scribe's documentation has been prepared under my direction and personally reviewed by me in its entirety. I confirm that the note above accurately reflects all work, treatment, procedures, and medical decision making performed by me. Departure Information Dispostion Being Evaluated By Hospitalist Referrals Brady Ames M.D. (PCP) Patient Instructions [facility]
[2016-11-21 20:45] LABS: PROTHROMBIN TIME (PATIENT) 10.7 SECONDS (9.0-12.0)
[2016-11-21 20:46] LABS: BLOOD UREA NITROGEN 17 mg/dl (7-18); BUN/CREATININE RATIO 19.9 (10-20); CALCIUM 9.2 mg/dl (8.5-10.1); CARBON DIOXIDE 25 mmol/L (21-32); CHLORIDE 103 mmol/L (98-107); CREATININE 0.87 mg/dl (0.60-1.20); GLUCOSE 82 mg/dl (70-99); POTASSIUM 3.6 mmol/L (3.5-5.1); SODIUM 138 mmol/L (136-145)
--- NOTE | 2016-11-21 20:53 | DIAGNOSTIC IMAGING REPORT ---
CT HEAD WITHOUT CONTRAST (CT) CLINICAL HISTORY: Stroke COMPARISON STUDY: Head CT dated to 217, MRI the brain dated to 217 TECHNIQUE: Axial CT of the brain is performed from the vertex to the skull base. IV contrast was not administered for this examination. CT DOSE: 537.48 mGy.cm FINDINGS: No intra or extra-axial mass lesions are visualized. There is no CT evidence of acute cortical infarction. There is no evidence of midline shift. There is no acute hemorrhage. No calvarial fractures are visualized. There is no evidence of pathologic ventricular dilatation. There is no evidence of acute sinusitis IMPRESSION: No acute intracranial findings Electronically signed by: Donovan Nazario M.D. 11/21/2016 8:51 PM Dictated Date/Time: 11/21/2016 8:50 PM
[2016-11-21 20:54] LABS: CKMB/CK RATIO 0.8 (0-3.0)
[2016-11-21] MEDS ORDERED: WLLSR/200 PO (21:12)
[2016-11-21] MEDS ORDERED: MCRB100HP PO (21:12)
[2016-11-21] MEDS ORDERED: ATV5X PO (21:12)
[2016-11-21 21:27] LABS: LYME DISEASE AB IGG NEG (NEG); LYME DISEASE AB IGM NEG (NEG)
[2016-11-21] MEDS ORDERED: CLOPIDOGREL BISULFATE 75 MG TAB PO STA (22:26)
--- NOTE | 2016-11-21 22:30 | History and Physical ---
History & Physical Date & Time of Service: Nov 21, 2016 at 22:25 Chief Complaint: Afib, Referred By Dr Lucero Primary Care Physician: Brady Ames M.D. History of Present Illness Source: patient, family, clinic records this is a 60 yo f that is presenting to us after referral from Dr Lucero. She was recently admitted on Nov 18, 2016 for left sided facial drooping and hemiplegia. She was evaluated in the hospital and there was no indication of stroke noted on any imaging. An echo was conducted as well and did not reveal any abnormalities. An EKG was reflective of atrial abnormalities and she was told to follow up with her community development director, Dr Lucero. She was seen today by Dr Lucero to arrange a holter monitor. He felt that the facial drooping is actually worse now than prior to previous admission. He discussed the case with neurology and because of concern for intracranial hemm or evolving stroke she was recommended to come to the ED. He was concerned that the previous PACs she was experiencing could be evolving to a PAF. He states in his note that she may potentially be a candidate for ELINA. She states that she currently feels palpitations and when observing the monitor PAC is noted. She also states that she feels like she is having a very difficult time finding any words. The family member than accompanied her also feels like her speech is very prolonged at that the facial drooping has worsened. She feels like she is slightly weaker on the left side compared to the right. Denies any headache, fever, dizziness or presyncope. Past Medical/Surgical History Surgical Problems: (1) H/O: hysterectomy Status: Resolved Family History No pertinent family history Social History Smoking Status: Never Smoker Smokeless Tobacco Use: No Drug Use: none Marital Status: Housing status: lives with family Occupational Status: employed Multi-Drug Resistant Organisms History of MDRO: No Allergies Coded Allergies: No Known Allergies (Unverified , 11/17/16) Home Medications Scheduled Aspirin (Aspirin EC Low Dose), 81 MG PO QAM Bupropion Hcl (Wellbutrin Sr), 200 MG PO BID Scheduled PRN Lorazepam (Lorazepam), 1 TAB PO Q4 PRN for Anxiety Nitrofurantoin (Nitrofurantoin Monohydrat), 1 CAP PO BID PRN for RECURRENT UTIS Review of Systems Constitutional: + weakness, No fever Eyes: No worsening of vision ENT: No hearing loss Respiratory: No cough, No dyspnea at rest, No dyspnea on exertion, No shortness of breath, No sputum, No wheezing Cardiovascular: + palpitations, No chest pain Abdomen: No constipation, No diarrhea, No nausea, No pain, No vomiting Musculoskeletal: No joint pain, No muscle pain Neurologic: + problem reported (left facial drooping, having difficulty finding words), No balance problems Psychiatric: No depression symptoms Endocrine: No fatigue Integumentary: No rash Physical Exam Vital Signs Date Time Temp Pulse Resp B/P Pulse Ox O2 Delivery O2 Flow Rate FiO2 11/21/16 21:05 84 18 124/60 98 Room Air 11/21/16 20:17 99 11/21/16 19:59 98 Room Air 11/21/16 18:30 98 Room Air 11/21/16 18:27 37.0 83 18 141/87 98 Room Air General Appearance: WD/WN, no apparent distress Head: normocephalic, atraumatic, + pertinent finding (left facial drooping noted) Eyes: normal inspection ENT: normal ENT inspection Neck: supple Respiratory/Chest: lungs clear, normal breath sounds, no respiratory distress, no accessory muscle use Cardiovascular: no murmur, + pertinent finding (2:1 rate) Abdomen/GI: normal bowel sounds, non tender, soft Back: normal inspection Extremities/Musculoskelatal: no calf tenderness, no pedal edema, + pertinent finding (4/5 on left, 5/5 on right) Neurologic/Psych: alert, normal mood/affect, oriented x 3, + 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, delayed speech), + pertinent finding (no dysdiadokinesia, left sided drift- mild, ) Skin: normal color, warm/dry, no rash Lymphatic: no adenopathy Diagnostics Laboratory Results Results Past 24 Hours Test 11/21/16 20:10 11/21/16 20:12 11/21/16 21:51 Range/Units White Blood Count 8.50 4.8-10.8 K/uL Red Blood Count 4.39 4.2-5.4 M/uL Hemoglobin 13.7 12.0-16.0 g/dL Hematocrit 40.2 37-47 % Mean Corpuscular Volume 91.6 80-100 fL Mean Corpuscular Hemoglobin 31.2 25-34 pg Mean Corpuscular Hemoglobin Concent 34.1 32-36 g/dl Platelet Count 368 130-400 K/uL Mean Platelet Volume 9.8 7.4-10.4 fL Neutrophils (%) (Auto) 61.9 % Lymphocytes (%) (Auto) 29.3 % Monocytes (%) (Auto) 6.7 % Eosinophils (%) (Auto) 1.5 % Basophils (%) (Auto) 0.5 % Neutrophils # (Auto) 5.26 1.4-6.5 K/uL Lymphocytes # (Auto) 2.49 1.2-3.4 K/uL Monocytes # (Auto) 0.57 0.11-0.59 K/uL Eosinophils # (Auto) 0.13 0-0.5 K/uL Basophils # (Auto) 0.04 0-0.2 K/uL RDW Standard Deviation 42.0 36.4-46.3 fL RDW Coefficient of Variation 12.5 11.5-14.5 % Immature Granulocyte % (Auto) 0.1 % Immature Granulocyte # (Auto) 0.01 0.00-0.02 K/uL Prothrombin Time 10.7 9.0-12.0 SECONDS Prothromb Time International Ratio 1.0 0.9-1.1 Activated Partial Thromboplast Time 26.3 21.0-31.0 SECONDS Partial Thromboplastin Ratio 1.0 Sodium Level 138 136-145 mmol/L Potassium Level 3.6 3.5-5.1 mmol/L Chloride Level 103 98-107 mmol/L Carbon Dioxide Level 25 21-32 mmol/L Anion Gap 10.0 3-11 mmol/L Blood Urea Nitrogen 17 7-18 mg/dl Creatinine 0.87 0.60-1.20 mg/dl Est Creatinine Clear Calc Drug Dose 66.7 ml/min Estimated GFR () 84.5 Estimated GFR (Non- 72.9 BUN/Creatinine Ratio 19.9 10-20 Random Glucose 82 70-99 mg/dl Calcium Level 9.2 8.5-10.1 mg/dl Total Creatine Kinase 59 26-192 U/L Creatine Kinase MB 0.5 0.5-3.6 ng/ml Creatine Kinase MB Ratio 0.8 0-3.0 Troponin I < 0.015 0-0.045 ng/ml Lyme Disease IgG Antibody NEG NEG Lyme Disease IgM Antibody NEG NEG Bedside Prothrombin Time INR 1.0 0.9-1.1 Diagnostic Radiology [~ rep ct add3]] CHEST ONE VIEW PORTABLE CLINICAL HISTORY: Stroke COMPARISON STUDY: 06/15/2014 FINDINGS: The cardiac and mediastinal contours are normal. There is no evidence of focal pulmonary consolidation. There is no evidence of failure. No pleural effusions are visualized.[ IMPRESSION: No active disease in the chest. [~ rep ct add3]] CT HEAD WITHOUT CONTRAST (CT) CLINICAL HISTORY: Stroke COMPARISON STUDY: Head CT dated to 217, MRI the brain dated to 217 TECHNIQUE: Axial CT of the brain is performed from the vertex to the skull base. IV contrast was not administered for this examination. CT DOSE: 537.48 mGy.cm FINDINGS: No intra or extra-axial mass lesions are visualized. There is no CT evidence of acute cortical infarction. There is no evidence of midline shift. There is no acute hemorrhage. No calvarial fractures are visualized. There is no evidence of pathologic ventricular dilatation. There is no evidence of acute sinusitis IMPRESSION: No acute intracranial findings EKG rate 95 NSR PAC noted no significant ischemic changes QTc 462 Impression Assessment and Plan This is a 60 yo f that is presenting to us with recurring facial drooping of the left side and slurred speech. As no acute intracranial features on previous exam concerning for hypercoagulability and possible seizure. Facial drooping possibly secondary to TIA vs seizure vs hypercoagulability - MRI to r/o IAC - Speech eval - EEG in am - carotid dopplers - CT head- no intracranial hemm or changes from previous - CTA Head/ neck was WNL on previous admission - Echo was WNL on previous admission - plavix initiated Abnormal EKG - PAC vs MAT vs PAF - EKG in am - tele admission H/o Depression/ anxiety - cont bupropion and lorazepam DVT Prophylaxis - lovenox FULL CODE Level of Care Telemetry Resuscitation Status FULL RESUSCITATION VTE Prophylaxis VTE Risk Assessment Done? Y/N: Yes Risk Level: Moderate Given or contraindicated: Enoxaparin (Lovenox)SQ Social Service Consult None Apply Note Total Time: Critical Care 30 - 74 minutes Additional Copies To Brady Ames M.D. Assessment and Plan Attending Addendum: I have physically seen and examined this patient, have directed their medical care, have supervised the medical residents activities, and agree with the H&P as noted above, with the following changes: NONE Since I last admitted the patient on November 17, she at this visit tonight, is showing changes of more significant left facial droop, left arm weakness, and stuttering speech and word searching. Her sister who is some tenderness with her tonight has the same assessment. The patient denies chest pain, palpitations, shortness of breath, cough, lower extremity swelling, vision change, hearing change, sore throat, fevers, chills, sweats, weight change, fatigue, nausea, vomiting, abdominal pain, pelvic pain, blood in urine or stool, dysuria, urinary frequency or urgency, lightheadedness , dizziness, headache, rash, abnormal bruising or bleeding, imbalance, generalized weakness, numbness or tingling in legs, arthralgias or myalgias, back or neck pain, night sweats, or allergy symptoms. The review of systems is otherwise negative other than for that already noted above, and at least 10 systems have been reviewed. The patient is awake, well-developed and adequately nourished, alert and oriented 3, normocephalic and atraumatic, lying in bed and in no acute distress. HEENT--PERRL, EOMI, mucous membranes and oropharynx dry. Neck--supple, no JVD or bruits, thyroid normal, trachea midline, no adenopathy. Heart--normal S1 and S2, no extra beats, no murmurs, rubs or gallops. Lungs--clear bilaterally with good air movement, no respiratory distress, no accessory muscle use. Abdomen--normal bowel sounds and soft, nontender and nondistended, no hernias or masses, no organomegaly. Extremities--no cyanosis, clubbing or edema. There are good distal pulses b/l. Dermatologic--normal skin turgor, normal color, warm and dry, no abnormal lymph nodes, no rash. Neurologic--cranial nerves II through XII grossly intact, motor and sensory examination normal. Rheumatologic--normal range of motion, nontender, muscles and joints. Psychiatric--normal affect. Assessment and Plan: Neurologic status--the patient has more pronounced left facial droop and left arm weakness tonight, and showing new symptoms of stuttering speech and word finding issues. She had a negative CT angiography of the head and neck during the last workup. It would not repeat that tonight. I will repeat the MRI of the brain with contrast for comparison to November 17, and would also order an EEG to assess for possible subclinical seizures. We'll continue aspirin 81 mg by mouth daily, and adequately grossly 5 mg by mouth daily. Will add arterial hypercoagulable workup to assess for possible low-flow state. We will order neurovascular checks to be performed. We'll consult neurology. Multifocal atrial tachycardia--persistent on telemetry as was noted during last admission. Will work on rate control adjusting medications. If the MRI of the brain is abnormal, we will consider a ELINA to be performed tomorrow. I would not anticoagulate at this time.
[2016-11-21 23:00] VITALS: BP_SYST 124; BP_SYST 142; BP_DIAS 60; BP_DIAS 89; PULSE 68; TEMP 36.7; O2SAT 99; Ht 160 cm; Wt 71.4 kg
[2016-11-21] MEDS ORDERED: IV FLUIDS COMPLETED PRN (23:00)
[2016-11-21 23:15] VITALS: BP 109/74; PULSE 88; TEMP 36.7; O2SAT 99
[2016-11-21 23:16] LABS: URINE APPEARANCE CLEAR (CLEAR); URINE BILIRUBIN NEG (NEG); URINE COLOR YELLOW; URINE NITRITE NEG (NEG); URINE SPECIFIC GRAVITY 1.001 (1.000-1.030); UROBILINOGEN NEG (NEG); ZZUR CULT IF INDIC CLEAN CATCH NO
[2016-11-21 23:21] LABS: MANUAL MICROSCOPIC REQUIRED? NO; REVIEW REQ? NO
[2016-11-21 23:30] VITALS: BP 110/73; PULSE 84; O2SAT 98
[2016-11-21] MEDS ORDERED: LORAZEPAM 0.5 MG TAB PO PRN (23:30)
[2016-11-21 23:36] LABS: BENZODIAZEPINE, URINE NEG (NEG); COCAINE,URINE NEG (NEG); PHENCYCLIDINE, URINE NEG (NEG)
[2016-11-21 23:45] VITALS: BP 141/68; PULSE 62; O2SAT 99
[2016-11-22] VITALS (11 sets, daily range): BP systolic 99–147; BP diastolic 58–82; PULSE 61–87; TEMP 36.5–37.2; O2SAT 95–99
[2016-11-22 05:58] LABS: HEMATOCRIT 37.6 % (37-47); MEAN CELL VOLUME 92.8 fL (80-100); MEAN CORPUSCULAR HEMOGLOBIN 32.1 pg (25-34); MEAN CORPUSCULAR HGB CONC 34.6 g/dl (32-36); MEAN PLATELET VOLUME 9.8 fL (7.4-10.4); PLATELET COUNT 324 K/uL (130-400); RED BLOOD COUNT 4.05 M/uL (4.2-5.4); WHITE BLOOD COUNT 5.71 K/uL (4.8-10.8)
[2016-11-22 06:27] LABS: BUN/CREATININE RATIO 22.3 (10-20); CALCIUM 8.8 mg/dl (8.5-10.1); CREATININE 0.74 mg/dl (0.60-1.20); POTASSIUM 3.9 mmol/L (3.5-5.1)
--- NOTE | 2016-11-22 07:17 | DIAGNOSTIC IMAGING REPORT ---
MRI OF THE BRAIN WITHOUT IV CONTRAST INTERNAL AUDITORY CANAL PROTOCOL CLINICAL HISTORY: Facial droop. COMPARISON STUDY: CT of the brain dated 11/21/2016. MRI of the brain dated 11/17/16. TECHNIQUE: MRI of the brain was performed utilizing various T1 and T2-weighted sequences in the axial, sagittal, and coronal planes. IV contrast was not administered for this examination. Additional high-resolution imaging was performed through the skull base to further assess the internal auditory canals. FINDINGS: Brain parenchyma: The brain parenchyma is normal in appearance. There is no hemorrhage or mass effect. There is no restricted diffusion to suggest acute ischemia. Milligan-white matter differentiation is preserved. No extra-axial fluid collection is seen. The cerebellar tonsils are normal in configuration. Ventricles, sulci, and cisterns: Normal in configuration. Internal auditory canals: There is no mass lesion seen within the cerebellopontine angle bilaterally. No mass lesion or abnormal signal is identified along the course of the internal auditory canals. The middle ear structures are normal as visualized. Pituitary and sella: Unremarkable. Intracranial vasculature: Normal flow voids are maintained at the skull base. Orbits: The bony orbits are grossly intact. Orbital contents are normal in appearance. Sinuses and mastoids: Clear. Calvarium: Unremarkable. Cervical cord: Partially visualized cervical spinal cord is normal in morphology and signal intensity. IMPRESSION: 1. No acute intracranial abnormality. 2. Unremarkable unenhanced assessment of the internal auditory canals. Electronically signed by: Piyush Danielson M.D. 11/22/2016 7:15 AM Dictated Date/Time: 11/22/2016 7:11 AM
[2016-11-22] MEDS: ENOXAPARIN 40 MG/0.4 ML SYR SQ SCH ×2 (08:29→12:07)
[2016-11-22] MEDS: BuPROPion SR 100 MG TABCR PO SCH ×2 (08:30→21:13)
[2016-11-22] MEDS ORDERED: CLOPIDOGREL BISULFATE 75 MG TAB PO SCH (09:00)
--- NOTE | 2016-11-22 12:09 | Neurology Consultation ---
Neurology Consultation Date of Consultation: Nov 22, 2016. Attending Physician: Max Turcios M.D. Primary Care Physician: Brady Ames M.D. Reason for Consultation: Possible stroke History of Present Illness Source: patient, hospital records The patient is a 60-year-old female who was readmitted to [facility] yesterday for further evaluation of recurrent or worsening strokelike symptoms that were noted during an outpatient evaluation with her bitumastic applier, Dr. Lucero. The patient was admitted to the hospital on 11/17/2016 for left- sided weakness and speech changes. She was seen by Dr. Angélica Flores, neurology, on 11/18/2016. I reviewed her clinical assessment. A brain MRI at that time was unremarkable. The patient was discharged to home with instructions to start aspirin. There was concern for a possible small, non- imageable stroke at that time. The patient indicates that her symptoms may not have completely resolved, however. She indicates that she experiences significant worsening of her left- sided weakness, difficulty with speech production, and apparent left facial weakness during an outpatient evaluation with her bitumastic applier. The patient reports that these symptoms have significantly improved although she continues to exhibit unusual, inconsistent, speech hesitancy during my interview. Her [id number] is present at bedside. The patient denies experiencing any significant weakness of the arms or legs at this time. To casual observation, there is no evidence of gross asymmetry in movement. There is no evidence of an obvious facial droop at this time either. The patient denies headache, double vision, vision loss, vertigo, or problems with swallowing. She is a somewhat guarded historian and indicates that she just thinks she needs some rest. I did review the images and radiologist's interpretation of her recent follow-up brain MRI with thin sections through the brainstem as well as the images and reports pertaining to her previous brain MRI. There is no evidence of significant parenchymal abnormalities on either test. No evidence of acute or subacute stroke after careful review of diffusion-weighted imaging. No significant T2 or FLAIR abnormalities within the brain parenchyma. There was no evidence of abnormal post contrast enhancement on the first brain MRI. The second study was done without IV contrast. CT angiography of the head and neck were also completed during her previous recent admission. No significant abnormalities were observed. An EKG completed this morning reveals a sinus rhythm with PACs. A recently completed transthoracic echocardiogram was generally unremarkable for obvious potential cardioembolic source. PFO was not specifically assessed. A urine drug screen is negative. Testing for an underlying hypercoagulable state is pending. The patient denies experiencing episodes of stroke or TIA in the past. She has a remote history of migraine, but nothing active recently. She has never had a seizure or been diagnosed with epilepsy. The patient does admit to me that she has been going through a rather lengthy divorce for the past 3 years. She indicates that there have been some issues recently pertaining to the financial aspects of her divorce. She does admit to considerable stress related to this issue. The patient has a past medical history of depression for which she has been prescribed Wellbutrin. She's been taking this medication for about the past year. Although she does admit to considerable stress related to her ongoing divorce, she denies significant feelings of depression, sadness, or anxiety at this time. Past Medical/Surgical History Medical Problems: (1) Facial droop Status: Acute (2) Heart palpitations Status: Acute (3) Left arm weakness Status: Acute (4) PVC (premature ventricular contraction) Status: Acute Family History The patient denies a family history of lung clots, stroke in the young, or epilepsy in any immediate family members Social History As indicated in the history of present illness, the patient has been going through a rather lengthy divorce which has resulted in considerable distress. Smokeless Tobacco Use: No Drug Use: none Marital Status: Housing Status: lives with significant other Occupation Status: employed Allergies Coded Allergies: No Known Allergies (Unverified , 11/17/16) Current Inpatient Medications Current Inpatient Medications Medications (Trade) Dose Ordered Sig/Roxann Route Start Time Stop Time Status Last Admin Dose Admin Clopidogrel Bisulfate (plAVix TAB) 75 mg QAM PO 11/22/16 09:00 12/22/16 08:59 11/22/16 08:30 75 MG Folic Acid (Folvite Tab) 1 mg QAM PO 11/22/16 09:00 12/22/16 08:59 11/22/16 08:30 1 MG Miscellaneous (Iv Fluids Completed) 1 ea PRN PRN N/A 11/21/16 23:00 11/21/17 22:59 Bupropion HCl (Wellbutrin-Sr Tab) 200 mg BID PO 11/22/16 09:00 12/22/16 08:59 11/22/16 08:30 200 MG Enoxaparin Sodium (Lovenox Inj) 40 mg QAM SQ 11/22/16 09:00 12/22/16 08:59 Review of Systems The patient denies fever, chills, double vision, vision loss, hearing loss, vertigo, tinnitus, shortness of breath, coughing, wheezing, abdominal pain, diarrhea, dysuria, incontinence, muscle pain, joint pain, rash, swollen glands, easy bruising or bleeding She does complain of frequent palpitations A full 10 point systems review was obtained from this patient. Pertinent positives and negatives are identified in the history of present illness and otherwise listed above. Physical Exam Vital Signs (Past 24 Hrs): Date Time Temp Pulse Resp B/P Pulse Ox O2 Delivery O2 Flow Rate FiO2 11/22/16 08:00 Room Air 11/22/16 07:53 36.5 70 16 122/79 98 Room Air 11/22/16 04:00 98 Room Air 11/22/16 04:00 37.2 71 18 100/58 98 11/22/16 04:00 37.2 71 18 100/58 98 Room Air 11/22/16 03:00 80 18 117/78 97 11/22/16 02:00 75 18 129/82 98 11/22/16 01:10 80 20 110/64 99 11/22/16 00:01 87 20 122/60 99 11/22/16 00:01 99 Room Air 11/22/16 00:01 99 Room Air 11/21/16 23:45 62 20 141/68 99 11/21/16 23:30 84 18 110/73 98 11/21/16 23:15 36.7 88 18 109/74 99 11/21/16 23:00 36.7 68 18 142/89 99 11/21/16 23:00 36.7 68 18 142/89 99 Room Air 11/21/16 23:00 36.7 68 18 124/60 99 11/21/16 22:45 85 18 124/60 98 11/21/16 21:05 84 18 124/60 98 Room Air 11/21/16 20:17 99 11/21/16 19:59 98 Room Air 11/21/16 18:30 98 Room Air 11/21/16 18:27 37.0 83 18 141/87 98 Room Air The patient is a well-developed elderly female. She is well-nourished and in no acute distress. She is alert and oriented to person place and time. She exhibits normal attention and concentration. Her speech exhibited some inconsistent hesitancy which resembles a stutter. However, her speech pattern fluctuates from being normal to exhibiting some hesitancy. She is able to name objects without difficulty. She repeats phrases without difficulty. She reads text including single words and sentences without difficulty. She is able to correctly describe a complex visual seen without any problems with speech production. Recent and remote memory intact. The patient exhibits a normal age appropriate fund of knowledge and normal vocabulary. Visual carrasquillo full to confrontation. Visual acuity normal. Pupils equal round reactive to light and accommodation. Eye movements normal. There is no ptosis. No ophthalmoplegia. No nystagmus. The patient reports decreased sensation to vibration with the tuning fork just to the left of midline on the frontal bone compared to right of the midline on the frontal bone. She reports increased sensitivity to cold sensation along the right forehead but not so for the right mid face or jaw. She does not have an obvious facial droop or facial weakness. Her smile is symmetrical. Brow furrow is normal bilaterally. She is able to close both eyes without difficulty. Hearing intact to finger rub bilaterally. Palate elevates to midline. Tongue protrusion midline. Shoulder shrug strength intact bilaterally. The patient endorses a slight decrement to vibratory sensation for the left arm and leg as compared to the right. Sensation to light touch, temperature, and proprioception are normal for the arms and legs. Deep tendon reflexes are 2+ for the upper and lower extremities. Plantar responses are equivocal bilaterally. There are some joint deformities of the toes which complicate assessment a plantar responses. There is no pronator drift with outstretched arms. The patient does not fix or orbit with arm roll on either side. She exhibits normal facility for both the left and right hands. Ophthalmoscopic examination reveals normal-appearing optic nerves and posterior elements. No papilledema, no hemorrhages. Carotid pulses normal to auscultation bilaterally, no bruits. Musculoskeletal examination reveals inconsistent, give way weakness for the left arm. The patient gives a brief, full effort, with strength testing of left arm abduction at the shoulder. She then exhibits some give way weakness without associated pain. Strength 4 biceps and triceps muscles are normal bilaterally. She exhibits some weakness with testing of finger abduction for the left hand. However, wrist extension and finger extension strength are normal. 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 Strength for all other muscle groups is grossly intact. There may be slight give way weakness with testing of the left lower extremity, but nothing significant. She performs finger to nose and heel to canales fairly well bilaterally. However, again, there is slight dysmetria with finger to nose on the left and perhaps hesitancy with heel to canales on the left. These findings are not consistent. Muscle tone normal throughout. There is no atrophy. No abnormal movements. Gait and station not tested due to safety concerns. Laboratory Results Past 24 Hours: 11/22/16 05:25 11/22/16 05:25 Test 11/21/16 20:10 11/21/16 20:12 11/21/16 22:23 11/21/16 22:26 Immature Granulocyte % (Auto) 0.1 % White Blood Count 8.50 K/uL (4.8-10.8) Red Blood Count 4.39 M/uL (4.2-5.4) Hemoglobin 13.7 g/dL (12.0-16.0) Hematocrit 40.2 % (37-47) Mean Corpuscular Volume 91.6 fL (80-100) Mean Corpuscular Hemoglobin 31.2 pg (25-34) Mean Corpuscular Hemoglobin Concent 34.1 g/dl (32-36) Platelet Count 368 K/uL (130-400) Mean Platelet Volume 9.8 fL (7.4-10.4) Neutrophils (%) (Auto) 61.9 % Lymphocytes (%) (Auto) 29.3 % Monocytes (%) (Auto) 6.7 % Eosinophils (%) (Auto) 1.5 % Basophils (%) (Auto) 0.5 % Neutrophils # (Auto) 5.26 K/uL (1.4-6.5) Lymphocytes # (Auto) 2.49 K/uL (1.2-3.4) Monocytes # (Auto) 0.57 K/uL (0.11-0.59) Eosinophils # (Auto) 0.13 K/uL (0-0.5) Basophils # (Auto) 0.04 K/uL (0-0.2) Immature Granulocyte # (Auto) 0.01 K/uL (0.00-0.02) Prothrombin Time 10.7 SECONDS (9.0-12.0) Prothromb Time International Ratio 1.0 (0.9-1.1) Activated Partial Thromboplast Time 26.3 SECONDS (21.0-31.0) Partial Thromboplastin Ratio 1.0 Total Creatine Kinase 59 U/L (26-192) Creatine Kinase MB 0.5 ng/ml (0.5-3.6) Creatine Kinase MB Ratio 0.8 (0-3.0) Troponin I < 0.015 ng/ml (0-0.045) Lyme Disease IgG Antibody NEG (NEG) Lyme Disease IgM Antibody NEG (NEG) Bedside Prothrombin Time INR 1.0 (0.9-1.1) Urine Color YELLOW Urine Appearance CLEAR (CLEAR) Urine pH 5.0 (4.5-7.5) Urine Specific [place] 1.001 (1.000-1.030) Urine Protein NEG (NEG) Urine Glucose (UA) NEG (NEG) Urine Ketones NEG (NEG) Urine Occult Blood NEG (NEG) Urine Nitrite NEG (NEG) Urine Bilirubin NEG (NEG) Urine Urobilinogen NEG (NEG) Urine Leukocyte Esterase NEG (NEG) Urine Opiates Screen NEG (NEG) Urine Methadone, Qualitative NEG (NEG) Urine Barbiturates NEG (NEG) Urine Phencyclidine (PCP) Level NEG (NEG) Ur Amphetamine/Methamphetamine NEG (NEG) MDMA (Ecstasy) Screen POS (NEG) Urine Benzodiazepines Screen NEG (NEG) Urine Cocaine Metabolite NEG (NEG) Urine Marijuana (THC) NEG (NEG) Test 11/22/16 05:25 Red Blood Count 4.05 M/uL (4.2-5.4) Mean Corpuscular Volume 92.8 fL (80-100) Mean Corpuscular Hemoglobin 32.1 pg (25-34) Mean Corpuscular Hemoglobin Concent 34.6 g/dl (32-36) RDW Standard Deviation 43.4 fL (36.4-46.3) RDW Coefficient of Variation 12.8 % (11.5-14.5) Mean Platelet Volume 9.8 fL (7.4-10.4) Anion Gap 10.0 mmol/L (3-11) Est Creatinine Clear Calc Drug Dose 77.5 ml/min Estimated GFR () 102.8 Estimated GFR (Non- 88.7 BUN/Creatinine Ratio 22.3 (10-20) Calcium Level 8.8 mg/dl (8.5-10.1) Impression This patient's neurological examination suggest a functional or non-physiologic etiology. She has an inconsistent stuttering type speech pattern which does not seem consistent with aphasia. She has inconsistent give way weakness of the left arm and leg. She does not have a left facial droop at this time. She has had 2 brain MRIs completed recently while she was symptomatic. Neither of these studies show any evidence for acute or subacute stroke or any significant parenchymal abnormalities. It may be of some significance that this patient has been going through a contentious divorce which may be nearing completion soon. Of course, this patient has been having PACs and could have a occult atrial fibrillation which would be a risk factor for cardioembolic TIA and stroke. Plan Case discussed with Dr. Olea I really don't have any further neurological recommendations. It is hard to argue against continuing with an antiplatelet medication, however. Plavix is a reasonable option although probably not superior to aspirin for stroke risk reduction. The main question is whether or not she should have her antiplatelet medication discontinued in favor of an anticoagulant given the possibility of cardioembolic events. However, atrial fibrillation has not been clearly diagnosed in this patient. A cardiology consultation will likely be needed. I do not see a compelling reason to proceed with an electroencephalogram. Additional neurological testing is not needed at this time. I discussed the possibility of obtaining a consultation with psychiatry with the patient to potentially address some of her ongoing emotional stressors and potentially make some medication adjustments. However, the patient is not interested at this time. Please contact me if I may be of further assistance.
[2016-11-22] MEDS ORDERED: NURSING VERBAL MED ORDER ONE (16:00)
[2016-11-22] MEDS: ACETAMINOPHEN 325 MG TAB PO PRN ×2 (16:21→23:51)
--- NOTE | 2016-11-22 18:28 | Anesthesiology Progress Note ---
Anesthesia Progress Note Date of Service Nov 22, 2016. Progress Notes The patient is a 60 y/o female scheduled for ELINA tomorrow. She had a possible stroke/TIA on 11/19/16 with L facial drooping and LUE weakness. She has had MRIs that have been negative and neurology has found her physical exam findings to be inconsistent. She also may have an arrhythmia such as afib. Her current EKG shows SR with PACs. There is a concern for a cardioembolic source for her TIA/stroke. The patient is going through a stressful divorce at this time which may contribute to her symptoms. The patient has had no problems with anesthesia. Recent echo shows normal EF and grade 1 diastolic dysfunction. Her CXR is normal and labs are normal. On exam the patient did not appear to have a left facial droop and grossly appeared neurologically intact. She had a MP 2 airway with good neck extension. Lungs were clear and heart was RRR with no murmurs. Carotids were negative for bruits. The patient was consented for MAC sedation as anesthesia for the procedure. She was counseled to remain NPO after midnight except for sips of water with pills.
--- NOTE | 2016-11-22 19:56 | Progress Note ---
Subjective Date of Service: Nov 22, 2016. Subjective Pt evaluation today including: conversation w/ patient, conversation w/ family , physical exam, chart review, lab review, review of studies, conversation w/ care consultant, review of inpatient medication list L sided facial droop, hand weakness persist - since monday. notes that otherwise she feels occassional palpitations - but that both last week and this past weekend when she's had the onset of the facial droop it's come right after a burst of feeling much more palpitations/fluttering than usual so far cardiac w/u has yielded ectopy but little else d/w neurology and cardiology - input greatly appreciated re d/w pt she would like to proceed with further testing - amenable to the thought that this is stress related, but wants to rule out other pathology more definitively Problem List Medical Problems: (1) Facial droop Status: Acute (2) Heart palpitations Status: Acute (3) Left arm weakness Status: Acute (4) PVC (premature ventricular contraction) Status: Acute Review of Systems Cardiac: + see HPI Psychiatric: + see HPI ros otherwise negative except for as above Objective Vital Signs Date Time Temp Pulse Resp B/P Pulse Ox O2 Delivery O2 Flow Rate FiO2 11/22/16 16:22 36.8 84 16 114/76 96 Room Air 11/22/16 16:00 Room Air 11/22/16 12:00 Room Air 11/22/16 11:51 36.7 61 16 120/75 98 Room Air 11/22/16 08:00 Room Air 11/22/16 07:53 36.5 70 16 122/79 98 Room Air 11/22/16 04:00 98 Room Air 11/22/16 04:00 37.2 71 18 100/58 98 11/22/16 04:00 37.2 71 18 100/58 98 Room Air 11/22/16 03:00 80 18 117/78 97 11/22/16 02:00 75 18 129/82 98 11/22/16 01:10 80 20 110/64 99 11/22/16 00:01 87 20 122/60 99 11/22/16 00:01 99 Room Air 11/22/16 00:01 99 Room Air 11/21/16 23:45 62 20 141/68 99 11/21/16 23:30 84 18 110/73 98 11/21/16 23:15 36.7 88 18 109/74 99 11/21/16 23:00 36.7 68 18 142/89 99 11/21/16 23:00 36.7 68 18 142/89 99 Room Air 11/21/16 23:00 36.7 68 18 124/60 99 11/21/16 22:45 85 18 124/60 98 11/21/16 21:05 84 18 124/60 98 Room Air 11/21/16 20:17 99 11/21/16 19:59 98 Room Air Physical Exam General Appearance: no apparent distress Eyes: EOMI ENT: hearing grossly normal Neck: trachea midline Respiratory/Chest: no respiratory distress, no accessory muscle use Extremities: normal range of motion Neurologic/Psychiatric: cardiographer II-XII nml as tested (correctable L facial droop; forehead symmetric), no motor/sensory deficits (subjectively diminished sensation L face, hand and foot to confrontational light touch, 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5 % Neutrophils # (Auto) 5.26 K/uL Lymphocytes # (Auto) 2.49 K/uL Monocytes # (Auto) 0.57 K/uL Eosinophils # (Auto) 0.13 K/uL Basophils # (Auto) 0.04 K/uL RDW Standard Deviation 42.0 fL RDW Coefficient of Variation 12.5 % Immature Granulocyte % (Auto) 0.1 % Immature Granulocyte # (Auto) 0.01 K/uL Prothrombin Time 10.7 SECONDS Prothromb Time International Ratio 1.0 Activated Partial Thromboplast Time 26.3 SECONDS Partial Thromboplastin Ratio 1.0 Sodium Level 138 mmol/L Potassium Level 3.6 mmol/L Chloride Level 103 mmol/L Carbon Dioxide Level 25 mmol/L Anion Gap 10.0 mmol/L Blood Urea Nitrogen 17 mg/dl Creatinine 0.87 mg/dl Est Creatinine Clear Calc Drug Dose 66.7 ml/min Estimated GFR () 84.5 Estimated GFR (Non- 72.9 BUN/Creatinine Ratio 19.9 Random Glucose 82 mg/dl Calcium Level 9.2 mg/dl Total Creatine Kinase 59 U/L Creatine Kinase MB 0.5 ng/ml Creatine Kinase MB Ratio 0.8 Troponin I < 0.015 ng/ml Lyme Disease IgG Antibody NEG Lyme Disease IgM Antibody NEG Bedside Prothrombin Time INR 1.0 Urine Color YELLOW Urine Appearance CLEAR Urine pH 5.0 Urine Specific [place] 1.001 Urine Protein NEG Urine Glucose (UA) NEG Urine Ketones NEG Urine Occult Blood NEG Urine Nitrite NEG Urine Bilirubin NEG Urine Urobilinogen NEG Urine Leukocyte Esterase NEG Urine Opiates Screen NEG Urine Methadone, Qualitative NEG Urine Barbiturates NEG Urine Phencyclidine (PCP) Level NEG Ur Amphetamine/Methamphetamine NEG MDMA (Ecstasy) Screen POS Urine Benzodiazepines Screen NEG Urine Cocaine Metabolite NEG Urine Marijuana (THC) NEG Test 11/22/16 05:25 White Blood Count 5.71 K/uL Red Blood Count 4.05 M/uL Hemoglobin 13.0 g/dL Hematocrit 37.6 % Mean Corpuscular Volume 92.8 fL Mean Corpuscular Hemoglobin 32.1 pg Mean Corpuscular Hemoglobin Concent 34.6 g/dl RDW Standard Deviation 43.4 fL RDW Coefficient of Variation 12.8 % Platelet Count 324 K/uL Mean Platelet Volume 9.8 fL Sodium Level 143 mmol/L Potassium Level 3.9 mmol/L Chloride Level 108 mmol/L Carbon Dioxide Level 25 mmol/L Anion Gap 10.0 mmol/L Blood Urea Nitrogen 17 mg/dl Creatinine 0.74 mg/dl Est Creatinine Clear Calc Drug Dose 77.5 ml/min Estimated GFR () 102.8 Estimated GFR (Non- 88.7 BUN/Creatinine Ratio 22.3 Random Glucose 90 mg/dl Calcium Level 8.8 mg/dl Assessment and Plan facial droop/ L sided weakness --ddx being conversion disorder vs TIA/RIND vs stroke too small to see on MRI vs other --d/w pt frankly that occult afib causing long lasting L sided neurologic deficits without findings on MRI would be unlikely but not impossible; after lengthy discussions w neurology and cardiology - will r/o cardioembolic - ongoing monitoring, check ELINA. -EEG for completeness stress/anxiety -supportive care DVT proph -hold lovenox for procedure in AM
[2016-11-23] VITALS (9 sets, daily range): BP systolic 105–152; BP diastolic 60–86; PULSE 67–97; TEMP 36.6; O2SAT 96–100
[2016-11-23 05:23] LABS: HEMATOCRIT 38.5 % (37-47); MEAN CELL VOLUME 92.3 fL (80-100); MEAN CORPUSCULAR HEMOGLOBIN 32.1 pg (25-34); MEAN CORPUSCULAR HGB CONC 34.8 g/dl (32-36); MEAN PLATELET VOLUME 9.8 fL (7.4-10.4); PLATELET COUNT 318 K/uL (130-400); RED BLOOD COUNT 4.17 M/uL (4.2-5.4); WHITE BLOOD COUNT 5.44 K/uL (4.8-10.8)
[2016-11-23 06:04] LABS: BUN/CREATININE RATIO 26.2 (10-20); CALCIUM 9.2 mg/dl (8.5-10.1); CREATININE 0.76 mg/dl (0.60-1.20); POTASSIUM 3.6 mmol/L (3.5-5.1)
[2016-11-23] MEDS ORDERED: MIDAZOLAM HCL 1 MG/ML 2ML VIAL ONE (07:09)
[2016-11-23] MEDS ORDERED: PROPOFOL IV EMULSION 10 MG/ML 20 ML VIAL IV ONE (07:09)
[2016-11-23] MEDS ORDERED: LIDOCAINE HCL 2% 2 ML VIAL (20MG/ML) ONE (07:09)
--- NOTE | 2016-11-23 08:40 | Cardiology Procedure Brief Nt ---
Preliminary Cardiology Note Procedure Date Nov 23, 2016. Pre-Procedure Diagnosis Possible CVA; r/o source of embolus Post-Procedure Diagnosis No Cardiac source found Procedure(s) Performed ELINA with anesthesia department [facility] Counselor(s) none Estimated Blood Loss none Preliminary Findings No evidence of shunt or HUAN/LA thrombus, all 4 Pulmonary veins drain into LA Normal Heart Recommendations none Complication(s) None Disposition
--- NOTE | 2016-11-23 09:01 | EEG Procedure Note ---
EEG Procedure Note Date of Service Nov 23, 2016. Start / End Times Start Time: 5:56 AM End Time: 6:16 AM Referring Physician Remigio Olea History 60-year-old female with left-sided weakness and tingling. EEG for further evaluation of possible seizure etiology. Home Medication List Scheduled Aspirin (Aspirin EC Low Dose), 81 MG PO QAM Bupropion Hcl (Wellbutrin Sr), 200 MG PO BID Scheduled PRN Lorazepam (Lorazepam), 1 TAB PO Q4 PRN for Anxiety Nitrofurantoin (Nitrofurantoin Monohydrat), 1 CAP PO BID PRN for RECURRENT UTIS Inpatient Medication List Current Inpatient Medications Medications (Trade) Dose Ordered Sig/Roxann Route Start Time Stop Time Status Last Admin Dose Admin Clopidogrel Bisulfate (plAVix TAB) 75 mg QAM PO 11/22/16 09:00 12/22/16 08:59 11/22/16 08:30 75 MG Folic Acid (Folvite Tab) 1 mg QAM PO 11/22/16 09:00 12/22/16 08:59 11/22/16 08:30 1 MG Miscellaneous (Iv Fluids Completed) 1 ea PRN PRN N/A 11/21/16 23:00 11/21/17 22:59 Bupropion HCl (Wellbutrin-Sr Tab) 200 mg BID PO 11/22/16 09:00 12/22/16 08:59 11/22/16 21:13 200 MG Enoxaparin Sodium (Lovenox Inj) 40 mg QAM SQ 11/22/16 09:00 12/22/16 08:59 Future Hold Acetaminophen (Tylenol Tab) 650 mg Q4H PRN PO 11/22/16 16:30 12/22/16 16:29 11/22/16 23:51 650 MG Description This is a 21 electrode EEG with a single channel dedicated to limited EKG. The electrodes were placed in accordance with the International 10-20 system. At the start of the recording the patient was in an awake state. Background was well organized and composed of symmetric mixed alpha and beta frequencies. There was a symmetric well-formed moderate amplitude 8-9 Hz posterior dominant rhythm that was reactive to eye opening and closure. Hyperventilation was not done due to concerns for possible TIA. Intermittent photic stimulation at various frequencies produced no abnormalities. Drowsiness was indicated by loss of muscle artifact and slowing of the background rhythm. There was no sleep transients. Interpretation This is a normal awake and drowsy routine EEG. There was no electrographic seizures or epileptiform discharges. Clinical Correlation A normal EEG does not rule out epilepsy if there is a strong clinical suspicion.
--- NOTE | 2016-11-23 10:31 | TEE ---
*NOTICE TO RECEIVING LIBERTARIAN AGENCY This information is strictly Confidential and protected under [place] law. [place] law prohibits you from making any further disclosure of this information unless further disclosure is expressly permitted by the written consent of the person to whom it pertains or is authorized by law. A general authorization for the release of medical or other information is not sufficient for this purpose. Hospital accepts no responsibility if the information is made available to any other person, INCLUDING THE PATIENT. Interpretation Summary * Name: ORTEGA ROSAS Study Date: 11/23/2016 09:00 AM BP: 119/54 mmHg * Patient Location: [facility] HR: 111 * : 1955 (M/d/yyyy) Gender: Female Height: 63 in * Age: 60 yrs Ethnicity: CA Weight: 130 lb * Ordering Physician: Etienne Lucero DO * Performed By: Lisa Overton * * Reason For Study: POSSIBLE CVA, CHECK FOR PFO * BSA: 1.6 m2 * -- Conclusions -- * The left ventricle is grossly normal size. * There is normal left ventricular wall thickness. * The left ventricular wall motion is normal. * Left ventricular systolic function is normal. * LVEF 60% * No evidence of LA or HUAN thrombus by 2D or color doppler * Normal connection of the RSPV and RIPV and LSPV to the LA * No evidence of a sinous venosous ASD or secundum ASD. * No evidence of PFO by 2D or Bubble study Procedure Details * The transesophageal portion of this study was personally supervised by the undersigned interpreting physician. * ELINA Probe #3 utilized for procedure. 150 Propofol was givin during test. * The study was performed in Cardiac Catheterization Lab. * Time out was conducted by the physician, nurse, and refresh technician with positive identification of patient and procedure. * Informed consent for Transesophageal Echocardiogram was obtained prior to the procedure. * An intravenous line was placed. A topical anesthetic agent was used for oropharangeal anesthesia. A bite block was inserted. * Sedation performed by the anesthesia department. * The patient's vital signs, including blood pressure, heart rate, pulse oximetry and cardiac rhythm were monitored throughout the procedure . * Midazolam 2 mg administered for sedation. * A multifrequency, multiplane transesopheageal echocardiographic endoscope was inserted and manipulated in the standard fashion to achieve multiplane views. * The transesophageal probe was passed without difficulty. * The usual views were obtained; basal, mid-esophageal, transgastric and aortic views. * The patient tolerated the procedure well without evidence of orophangeal or esophageal trauma. * Contrast injection with agitated saline was performed. * A 2D transesophageal echocardiogram with spectral and color flow Doppler was performed. Left Ventricle * The left ventricle is grossly normal size. * There is normal left ventricular wall thickness. * Left ventricular systolic function is normal. * LVEF 60% * The left ventricular wall motion is normal. Right Ventricle * The right ventricular systolic function is normal. Atria * The left atrial size is normal. * Right atrial size is normal. * No evidence of LA or HUAN thrombus by 2D or color doppler Normal connection of the RSPV and RIPV and LSPV to the LA No evidence of a sinous venosous ASD. No evidence of PFO by 2D or Bubble study Mitral Valve * The mitral valve is grossly normal. * There is mild mitral regurgitation. Tricuspid Valve * The tricuspid valve is not well visualized, but is grossly normal. * There is trace tricuspid regurgitation. Aortic Valve * The aortic valve is tricuspid. The leaflet thickness if normal. There is no aortic stenosis, and no significant insufficiency. * No aortic regurgitation is present. Pulmonic Valve * The pulmonic valve is not well seen, but is grossly normal. * Trace pulmonic valvular regurgitation. Great Vessels * The aortic root and proximal ascending aorta are normal sized. * Mild intimal Thickening of the ascending aorta and descending aorta. Pericardium * There is no pericardial effusion. Right Ventricle * The right ventricular wall motion is normal.
--- NOTE | 2016-11-23 11:16 | Anesthesiology Progress Note ---
Anesthesia Post Op Note Date & Time Nov 23, 2016 at 11:17 Vital Signs Pain Intensity: 0 Vital Signs Past 12 Hours Date Time Temp Pulse Resp B/P Pulse Ox O2 Delivery O2 Flow Rate FiO2 11/23/16 08:55 36.6 80 16 113/60 96 Room Air 11/23/16 08:45 36.6 99 16 103/63 97 Room Air 11/23/16 08:35 111 20 119/54 97 Nasal Cannula 2 11/23/16 08:30 97 14 111/63 99 Nasal Cannula 4 11/23/16 08:25 96 12 138/78 100 Nasal Cannula 4 11/23/16 08:20 86 12 152/86 100 Nasal Cannula 4 11/23/16 08:15 91 10 105/69 100 Nasal Cannula 4 11/23/16 08:12 86 16 141/76 100 Nasal Cannula 4 11/23/16 08:00 98 Room Air 11/23/16 08:00 36.6 67 18 119/77 96 11/23/16 07:58 36.6 78 18 123/80 98 Room Air 11/23/16 04:00 36.6 78 18 123/80 98 Room Air 11/23/16 04:00 Room Air 11/23/16 00:01 Room Air Notes Mental Status: alert / awake / arousable, participated in evaluation Pt Amnestic to Procedure: Yes Nausea / Vomiting: adequately controlled Pain: adequately controlled Airway Patency, RR, SpO2: stable & adequate BP & HR: stable & adequate Hydration State: stable & adequate Anesthetic Complications: no major complications apparent
--- NOTE | 2016-11-23 11:37 | Discharge Instructions ---
Discharge Instructions Admission Reason for Admission: Facial Droop, Stroke Like Sypmtoms Discharge Discharge Diagnosis / Problem: no stroke identified; palpitations likely ectopy but will need monitoring Discharge Goals Goal(s): Diagnostic testing Activity Recommendations Activity Limitations: resume your previous activity . Instructions / Follow-Up Instructions / Follow-Up -facial droop - we'd recommend that you follow up with neurology to see this through to "normal" -- Dr Snyder knows your case and would be available to follow up as part of [facility] Neurology, or Dr Veronica could set you up with one of the [place] neurologists since most of the rest of your care is through [place]. Either way, we'll want someone watching you through until this gets back to normal. therapy might be helpful - so we'll write a referral to do PT as an outpatient -palpitations - we've seen lots of ectopy (benign extra beats that commonly occur with stress, lack of sleep, or caffeine) but no atrial fibrillation or other arrhythmias. we'll definitely want dr veronica to set up the alf monitoring, however, since you didn't really have any run of bad symptoms while on the monitor here Current Hospital Diet Patient's current hospital diet: AHA Diet (Heart Healthy) Discharge Diet Recommended Diet: Regular Diet Pending Studies Studies pending at discharge: no Laboratory Results Hemoglobin A1c Test 11/19/16 07:15 Range/Units Estimated Average Glucose 108 mg/dl Hemoglobin A1c 5.4 4.5-5.6 % Lipid Panel Test 11/19/16 07:15 Range/Units Triglycerides Level 43 0-150 mg/dl Cholesterol Level 194 0-200 mg/dl HDL Cholesterol 76 mg/dl Cholesterol/HDL Ratio 2.6 LDL Cholesterol, Calculated 109 mg/dl Medical Emergencies . Who to Call and When: Medical Emergencies: Call 911 immediately if you experience any of the following warning signs and symptoms of Stroke: * Sudden numbness or weakness of the face, arm or leg, especially on one side of the body * Sudden confusion, trouble speaking or understanding * Sudden trouble seeing in one or both eyes * Sudden trouble walking, dizziness, loss of balance or coordination * Sudden severe headache with no cause Do not delay calling 911 if you experience any warning signs or symptoms of a stroke. Delay in seeking medical attention may affect what treatments can be given to you. . Non-Emergent Contact Non-Emergency issues call your: Primary Care Provider, Global Risk Management Director . . "Provider Documentation" section prepared by Remigio Olea. Stroke Core Measures Reason no t-PA for Stroke: Treatment not indicated Reason no antithrom by day 2: Treatment provided - N/A Reason no antithrom at D/C: Treatment not indicated Reason no statin at D/C: Treatment not indicated Reason no anticoag w/a fib: Treatment not indicated VTE Core Measure Inpt VTE Proph given/why not?: Enoxaparin (Lovenox)SQ
--- NOTE | 2016-11-23 18:10 | Discharge Summary ---
Discharge Summary Admission Date: Nov 21, 2016 at 22:10 Discharge Date: Nov 23, 2016 Discharge Disposition: Home Procedures: MRI OF THE BRAIN WITHOUT IV CONTRAST INTERNAL AUDITORY CANAL PROTOCOL CLINICAL HISTORY: Facial droop. COMPARISON STUDY: CT of the brain dated 11/21/2016. MRI of the brain dated 11/17/16. TECHNIQUE: MRI of the brain was performed utilizing various T1 and T2-weighted sequences in the axial, sagittal, and coronal planes. IV contrast was not administered for this examination. Additional high-resolution imaging was performed through the skull base to further assess the internal auditory canals. FINDINGS: Brain parenchyma: The brain parenchyma is normal in appearance. There is no hemorrhage or mass effect. There is no restricted diffusion to suggest acute ischemia. Milligan-white matter differentiation is preserved. No extra-axial fluid collection is seen. The cerebellar tonsils are normal in configuration. Ventricles, sulci, and cisterns: Normal in configuration. Internal auditory canals: There is no mass lesion seen within the cerebellopontine angle bilaterally. No mass lesion or abnormal signal is identified along the course of the internal auditory canals. The middle ear structures are normal as visualized. Pituitary and sella: Unremarkable. Intracranial vasculature: Normal flow voids are maintained at the skull base. Orbits: The bony orbits are grossly intact. Orbital contents are normal in appearance. Sinuses and mastoids: Clear. Calvarium: Unremarkable. Cervical cord: Partially visualized cervical spinal cord is normal in morphology and signal intensity. IMPRESSION: 1. No acute intracranial abnormality. 2. Unremarkable unenhanced assessment of the internal auditory canals. Electronically signed by: Piyush Danielson M.D. 11/22/2016 7:15 AM Dictated Date/Time: 11/22/2016 7:11 AM Interpretation Summary * Name: ORTEGA ROSAS Study Date: 11/23/2016 09:00 AM BP: 119/54 mmHg * Patient Location: [facility] HR: 111 * : 1955 (M/d/yyyy) Gender: Female Height: 63 in * Age: 60 yrs Ethnicity: CA Weight: 130 lb * Ordering Physician: Fragin, Etienne, DO * Performed By: Lisa Overton * * Reason For Study: POSSIBLE CVA, CHECK FOR PFO * BSA: 1.6 m2 * -- Conclusions -- * The left ventricle is grossly normal size. * There is normal left ventricular wall thickness. * The left ventricular wall motion is normal. * Left ventricular systolic function is normal. * LVEF 60% * No evidence of LA or HUAN thrombus by 2D or color doppler * Normal connection of the RSPV and RIPV and LSPV to the LA * No evidence of a sinous venosous ASD or secundum ASD. * No evidence of PFO by 2D or Bubble study Procedure Details * The transesophageal portion of this study was personally supervised by the undersigned interpreting physician. * ELINA Probe #3 utilized for procedure. 150 Propofol was givin during test. * The study was performed in Cardiac Catheterization Lab. * Time out was conducted by the physician, nurse, and traffic analysis technician with positive identification of patient and procedure. * Informed consent for Transesophageal Echocardiogram was obtained prior to the procedure. * An intravenous line was placed. A topical anesthetic agent was used for oropharangeal anesthesia. A bite block was inserted. * Sedation performed by the anesthesia department. * The patient's vital signs, including blood pressure, heart rate, pulse oximetry and cardiac rhythm were monitored throughout the procedure . * Midazolam 2 mg administered for sedation. * A multifrequency, multiplane transesopheageal echocardiographic endoscope was inserted and manipulated in the standard fashion to achieve multiplane views. * The transesophageal probe was passed without difficulty. * The usual views were obtained; basal, mid-esophageal, transgastric and aortic views. * The patient tolerated the procedure well without evidence of orophangeal or esophageal trauma. * Contrast injection with agitated saline was performed. * A 2D transesophageal echocardiogram with spectral and color flow Doppler was performed. Left Ventricle * The left ventricle is grossly normal size. * There is normal left ventricular wall thickness. * Left ventricular systolic function is normal. * LVEF 60% * The left ventricular wall motion is normal. Right Ventricle * The right ventricular systolic function is normal. Atria * The left atrial size is normal. * Right atrial size is normal. * No evidence of LA or HUAN thrombus by 2D or color doppler Normal connection of the RSPV and RIPV and LSPV to the LA No evidence of a sinous venosous ASD. No evidence of PFO by 2D or Bubble study Mitral Valve * The mitral valve is grossly normal. * There is mild mitral regurgitation. Tricuspid Valve * The tricuspid valve is not well visualized, but is grossly normal. * There is trace tricuspid regurgitation. Aortic Valve * The aortic valve is tricuspid. The leaflet thickness if normal. There is no aortic stenosis, and no significant insufficiency. * No aortic regurgitation is present. Pulmonic Valve * The pulmonic valve is not well seen, but is grossly normal. * Trace pulmonic valvular regurgitation. Great Vessels * The aortic root and proximal ascending aorta are normal sized. * Mild intimal Thickening of the ascending aorta and descending aorta. Pericardium * There is no pericardial effusion. Right Ventricle * The right ventricular wall motion is normal. Description This is a 21 electrode EEG with a single channel dedicated to limited EKG. The electrodes were placed in accordance with the International 10-20 system. At the start of the recording the patient was in an awake state. Background was well organized and composed of symmetric mixed alpha and beta frequencies. There was a symmetric well-formed moderate amplitude 8-9 Hz posterior dominant rhythm that was reactive to eye opening and closure. Hyperventilation was not done due to concerns for possible TIA. Intermittent photic stimulation at various frequencies produced no abnormalities. Drowsiness was indicated by loss of muscle artifact and slowing of the background rhythm. There was no sleep transients. Interpretation This is a normal awake and drowsy routine EEG. There was no electrographic seizures or epileptiform discharges. Clinical Correlation A normal EEG does not rule out epilepsy if there is a strong clinical suspicion. Last Resulted CBC 11/23/16 05:05 Last Resulted BMP 11/23/16 05:05 Consultations: neurology cardiology anesthesiology Medication Reconciliation Continued Medications: Aspirin (Aspirin EC Low Dose) 81 Mg Ectab 81 MG PO QAM for 30 Days Bupropion Hcl (Wellbutrin Sr) 200 Mg Tabcr 200 MG PO BID, #60 Lorazepam (Lorazepam) 0.5 Mg Tab 1 TAB PO Q4 PRN for Anxiety, #60 Nitrofurantoin (Nitrofurantoin Monohydrat) 1 Homepack Ea 1 CAP PO BID PRN for RECURRENT UTIS, #60 RESQUE PACK Discharge Exam Physical Exam: General Appearance: no apparent distress Eyes: EOMI ENT: hearing grossly normal Neck: trachea midline Respiratory/Chest: no respiratory distress, no accessory muscle use Extremities: normal inspection Neurologic/Psychiatric: alert, normal mood/affect, + pertinent finding (L facial droop) Skin: normal color, warm/dry Hospital Course facial droop/ L sided weakness --ddx being conversion disorder vs TIA/RIND vs stroke too small to see on MRI vs other -- but after further review - no afib, no findings on ELINA, negative MRI (along with negative MRI last week) and neurologic exam inconsistent with CVA. EEG negative. stable. nothing fitting with stroke or seizure. stable for home. ongoing outpt PCP and neurologic w/u. -stable for discharge palpitations -showing a lot of ectopy - no afib or atrial arrhythmia -- but also didn't have her worst symptoms -- will want to continue to follow up as outpt with ongoing monitoring stable for discharge home f/u PCP, cardiology, and neurology Total Time Spent: Less than 30 minutes This includes examination of the patient, discharge planning, medication reconciliation, and communication with other providers. Discharge Instructions Please refer to the electronic Patient Visit Report (Discharge Instructions) for additional information. Additional Copies To Brady Ames M.D.; Rivas Snyder M.D.
--- NOTE | 2016-11-24 11:45 | EDITING REQUIRED CODING QUERY ---
CODING CLARIFICATION Possible, rule out, consistent with or probable diagnoses cannot be coded on an observation account. Please clarify below the presence of the TIA: ( ) TIA was present during admission ( ) TIA was not present during this admission ( ) Presence of TIA could not be determined. ( x ) Other, please clarify: see discharge summary and neurology assessment - does not appear to have been TIA, possibly was conversion disorder. Will have ongoing outpt f/u. Thank you for your assistance, Jenn Prakash - Drive In Teller
[2016-11-28 17:44] LABS: B2 GLYCOPROTEIN IGA <9 SAU (<=20); B2 GLYCOPROTEIN IGG <9 SGU (<=20); B2 GLYCOPROTEIN IGM <9 SMU (<=20); LUPUS ANTICOAGULANT** TC36573X Negative (Negative)
== END 2016-11-23 12:08 | disposition home or self-care (01) ==
LOC: ENRESERVTM → ENRESERVDT → C.EDB 18:24 → C.2T 22:10
PROVIDERS: ADMIT Hospitalist; ATTEND Hospitalist
DX: R29.810 Facial weakness (principal); R53.1 Weakness; R00.2 Palpitations; Z90.710 Acquired absence of both cervix and uterus; Z79.82 Long term (current) use of aspirin; R94.31 Abnormal electrocardiogram [ECG] [EKG]

== ENCOUNTER → 2017-02-21 | Outpatient (CLI) | payer BC, OTHER ==
[~2017-02-21] MED LIST changes: +ATV5X PO; -BUPR200T2 PO; +MCRB100HP PO; +WLLSR/200 PO
[2017-02-23 10:25] LABS: C-REACTIVE PROT HIGHSEN 2.6 MG/L
== END | disposition home or self-care (01) ==
LOC: C.LAB1850 16:31
PROVIDERS: ATTEND Family Medicine
DX: R47.1 Dysarthria and anarthria (principal); R51 Headache

== ENCOUNTER → 2017-02-27 | Outpatient (CLI) | payer BC, OTHER ==
--- NOTE | 2017-02-27 13:10 | DIAGNOSTIC IMAGING REPORT ---
ULTRASOUND OF THE CAROTID ARTERIES CLINICAL HISTORY: DYSARTHRIA AND ANARTHRIA COMPARISON STUDY: CT angiography neck dated to 317 TECHNIQUE: Real-time, grayscale, and color Doppler sonography of the carotid arteries was performed. Imaging reviewed in the transverse and longitudinal planes. NASCET criteria was utilized for stenosis calcification. FINDINGS: There is minimal atherosclerotic plaque present . The peak systolic velocity within the right internal carotid artery is 71 cm/sec. The systolic velocity ratio of right internal to common carotid artery is 1.1. The peak systolic velocity within the left internal carotid artery is 80 cm/sec. The systolic velocity ratio left internal to common carotid artery is 1.2. Antegrade flow is seen in the vertebral arteries. The external carotid arteries are patent. Blood pressure in the right arm measured 149 mm/Hg. Blood pressure in the left arm measured 160 mm/Hg. IMPRESSION: No evidence of hemodynamically significant carotid stenosis. Electronically signed by: Donovan Nazario M.D. 02/27/2017 1:09 PM Dictated Date/Time: 02/27/2017 1:08 PM
== END | disposition home or self-care (01) ==
LOC: C.ULTR 12:01
PROVIDERS: ATTEND Family Medicine
DX: R47.1 Dysarthria and anarthria (principal); R51 Headache